=== PATIENT | female | born 1990 | race Caucasian/White ===

== ENCOUNTER 2020-11-29 04:27 | Inpatient (IN) ==
[2020-11-29] MEDS ORDERED: OXYTOCIN 30 UNITS/500 ML BAG IV PRN ×3 (05:09→12:12)
[2020-11-29] MEDS ORDERED: fentaNYL citrate 100 MCG/2 ML VIAL ONE (05:24)
[2020-11-29] MEDS ORDERED: BUPIVACAINE 0.25% 30 ML VIAL ONE (05:24)
[2020-11-29] MEDS ORDERED: ePHEDrine sulfate 50 MG/ML AMP ONE (05:24)
[2020-11-29] MEDS ORDERED: SODIUM CHLORIDE 0.9% INJ 10 ML VIAL ONE (05:24)
[2020-11-29] MEDS ORDERED: fentaNYL 2MCG/ML ROPIVACAINE 1.25MG/ML 100 ML BAG EPI ONE (05:25)
[2020-11-29] MEDS: LACTATED RINGER'S 1,000 ML IV PRN ×2 (05:25→06:48)
[2020-11-29 05:33] LABS: Hemoglobin 12.6 g/dL (12.0-16.0); Mean Corpuscular Hemoglobin 31.5 pg (25-34); Mean Platelet Volume 10.4 fL (7.4-10.4); Platelet Count 187 K/uL (130-400); RDW Coefficient of Variation 12.9 % (11.5-14.5); RDW Standard Deviation 42.3 fL (36.4-46.3); White Blood Count 12.55 K/uL (4.8-10.8)
--- NOTE | 2020-11-29 06:00 | Labor Progress Brief Note ---
Date of Service November 29, 2020 Subjective Reason For Note: Routine Evaluation Admit Note 29 F P0000 at 40.2 weeks admitted in active labor. GBS is negative. FHT Cat 1. Covid is negative. Cervix 4/100/-1/vertex. Will get epidural. Assessment & Plan Admission and Anticipated Discharge Date Admission Date: November 29, 2020 Results & Data ([facility] Vital Signs (Past 12 Hours) Vital Signs Temp Pulse Resp BP Pulse Ox 11/29/20 05:55 67 99 11/29/20 05:50 63 98 11/29/20 05:45 63 99 11/29/20 05:40 64 99 11/29/20 05:34 75 98 11/29/20 05:29 63 98 11/29/20 05:02 36.8 C 11/29/20 04:46 36.8 C 66 18 130/82 11/29/20 04:45 66 130/82
--- NOTE | 2020-11-29 06:16 | Anesthesiology Consultation ---
Date of Service November 29, 2020 Assessment & Plan Chart Review Chart Review: Acceptable Risk for Surgery, Patient NOT seen in Pre Admission Testing and Acceptable Risk for Labor Epidural Consults Requested none ASA ASA2 Proposed Anesthesia Anesthesia Type: Labor Epidural and CSE Risk / Benefits Reviewed With: PT / POA / Parent / Guardian, Accepts Plan and Informed Consent Obtained Additional Comments: covid test negative History Height/Weight Height: 5 ft 5 in Weight: 70 kg Allergies Allergy/AdvReac Type Severity Reaction Status Date / Time No Known Drug Allergies Allergy nkda Verified 11/29/20 05:47 Medications Home Medications Medication Instructions Recorded Confirmed Last Taken montelukast 10 mg tablet 10 mg PO DAILY 04/30/20 11/29/20 11/29/20 [id number] 1 tab PO DAILY 11/29/20 11/29/20 11/28/20 [] Active Medications Generic Name Dose Route Start Last Admin Trade Name Freq PRN Reason Stop Dose Admin Lactated Ringer's 1,000 mls @ 125 mls/hr 11/29/20 05:09 11/29/20 05:25 Lr IV 12/01/20 05:08 999 mls/hr .Q8H PRN Administration L&D Protocol Protocol NPO Date Last Intake of Fluids: 11/29/20 Time Last Intake of Fluids: 04:00 Date Last Intake of Solids: 11/28/20 Time Last Intake of Solids: 23:59 Past Medical History Medical History Asthma Exercise / Class Metabolic Activity II 4-5 Yardwork/Stairs/Walk up hill Past Surgical History Surgical History No pertinent past surgical history Past Anesthesia History No Hx of Anesthesia Complications and No Family Hx of Anesthesia Complications History of PONV No Hx of PONV and No Hx of Motion Sickness Social History Smoking Status: Never smoker Hx Alcohol Use: No Hx Substance Use: No Physical Exam Vital Signs Last Vital Signs Temp 36.8 C 11/29/20 05:02 Pulse 63 11/29/20 06:10 Resp 18 11/29/20 04:46 BP 130/82 11/29/20 04:46 Pulse Ox 99 11/29/20 06:10 Constitutional + obese ENMT Mouth: no dentition abnormality Thyromental Distance: < 3.5 Finger Breadths Mallampati Class: II Neck normal visual inspection and trachea midline; neck extension not limited Respiratory normal respiratory effort Auscultation: lungs clear to auscultation bilaterally Cardiovascular Rate/Rhythm: regular rate and regular rhythm Heart Sounds: no murmur Vessels: no carotid bruit Musculoskeletal Spine: lumbar spine normal to inspection; normal cervical ROM Neurologic moves all extremities Motor/Sensory: no sensory deficit Psychiatric Orientation: alert and oriented x 3 Testing Laboratory Results 11/29/20 05:23
[2020-11-29] MEDS ORDERED: fentaNYL 2MCG/ML ROPIVACAINE 1.25MG/ML 100 ML BAG EPI PRN (06:38)
[2020-11-29] MEDS ORDERED: diphenhydrAMINE 50 MG/ML VIAL IV PRN (06:38)
[2020-11-29] MEDS ORDERED: PROMETHAZINE HCL 25 MG in SODIUM CHLORIDE 0.9% 50 ML IV PRN (06:38)
[2020-11-29] MEDS ORDERED: NALOXONE HCL 0.4 MG/1 ML VIAL/CARP IV PRN (06:38)
[2020-11-29] MEDS ORDERED: NALOXONE HCL 1 MG in SODIUM CHLORIDE 0.9% 1000ML 1,000 ML IV PRN (06:38)
[2020-11-29] MEDS ORDERED: ONDANSETRON INJ 2 MG/ML 2 ML VIAL IV PRN (06:38)
[2020-11-29] MEDS ORDERED: ePHEDrine sulfate 50 MG/ML AMP IV PRN (06:38)
--- NOTE | 2020-11-29 07:33 | Obstetrical Progress Note ---
Date of Service November 29, 2020 Assessment & Plan Admission and Anticipated Discharge Date Admission Date: November 29, 2020 Subjective Patient is seen and examined. She is a 29-year-old G1, P0 at 40 weeks and 2 days of gestation admitted by Dr. Thomas this morning after spontaneous rupture of membranes and contractions. She has received epidural and comfortable now. I reviewed her medical history and confirmed with her. She has a history of asthma, allergies and has been on montelukast daily. She denies any other problems, she denies smoking, alcohol, drug use, history of STDs including herpes, chlamydia, gonorrhea. Her has been uncomplicated except she was measuring small and has seen [facility] for ultrasound and Doppler studies were normal and baby was measuring 2600 g 3 weeks ago. Vital signs stable afebrile, heart rate category 1, Contractions every 2-3 minutes, Vaginal exam, cervix is 9 cm dilated 90% effaced head is at +1 station. Patient does not have any pressure nor urge to push. We will continue to monitor and anticipate vaginal delivery. Results & Data ([facility]) Vital Signs (Past 12 Hours) Vital Signs Temp Pulse Resp BP Pulse Ox 11/29/20 07:29 76 114/75 11/29/20 07:26 83 106/72 11/29/20 07:25 76 99 11/29/20 07:23 81 115/71 11/29/20 07:20 86 117/69 99 11/29/20 07:17 80 111/68 11/29/20 07:15 72 98 11/29/20 07:14 66 100/61 11/29/20 07:11 63 109/59 L 11/29/20 07:10 68 98 11/29/20 07:08 74 113/71 11/29/20 07:05 72 103/68 98 11/29/20 07:02 90 101/65 11/29/20 07:00 36.6 C 71 16 98 11/29/20 06:59 71 18 94/57 L 11/29/20 06:56 74 97/58 L 11/29/20 06:55 75 98 11/29/20 06:53 66 101/60 11/29/20 06:50 78 98/58 L 98 11/29/20 06:47 67 102/55 L 11/29/20 06:45 68 98 11/29/20 06:44 70 105/64 11/29/20 06:41 69 18 104/65 11/29/20 06:40 70 97 11/29/20 06:38 69 18 110/69 11/29/20 06:35 68 117/75 98 11/29/20 06:32 70 118/72 11/29/20 06:30 70 100 11/29/20 06:29 75 18 119/68 11/29/20 06:25 69 98 11/29/20 06:20 68 99 11/29/20 06:15 61 98 11/29/20 06:10 63 99 11/29/20 06:05 78 98 11/29/20 06:00 76 99 11/29/20 05:55 67 99 11/29/20 05:50 63 98 11/29/20 05:45 63 99 11/29/20 05:40 64 99 11/29/20 05:34 75 98 11/29/20 05:29 63 98 11/29/20 05:02 36.8 C 11/29/20 04:46 36.8 C 66 18 130/82 11/29/20 04:45 66 130/82
[2020-11-29] MEDS ORDERED: MINERAL OIL 30 ML UDC ONE (07:45)
--- NOTE | 2020-11-29 10:16 | Obstetrical Progress Note ---
Date of Service November 29, 2020 Assessment & Plan Admission and Anticipated Discharge Date Admission Date: November 29, 2020 Subjective Patient felt pressure and desired to push Head at +3 FHR categ I Continue to monitor closely Results & Data ([facility]) Vital Signs (Past 12 Hours) Vital Signs Temp Pulse Resp BP Pulse Ox 11/29/20 10:12 71 125/57 L 11/29/20 10:10 75 97 11/29/20 10:09 107 H 191/91 H 92 11/29/20 10:06 67 136/65 11/29/20 10:05 66 99 11/29/20 10:03 79 91 11/29/20 10:02 73 125/82 11/29/20 10:00 69 20 98 11/29/20 09:59 67 120/74 11/29/20 09:57 86 135/88 11/29/20 09:56 84 92 11/29/20 09:55 79 99 11/29/20 09:53 94 H 128/82 11/29/20 09:50 74 122/75 99 11/29/20 09:47 70 125/77 11/29/20 09:45 74 145/66 H 99 11/29/20 09:42 69 113/59 L 11/29/20 09:40 72 98 11/29/20 09:38 64 117/67 11/29/20 09:35 61 120/69 99 11/29/20 09:33 78 114/80 11/29/20 09:31 36.7 C 11/29/20 09:30 66 124/76 99 11/29/20 09:26 77 117/72 11/29/20 09:25 71 98 11/29/20 09:23 70 117/69 11/29/20 09:20 64 124/69 98 11/29/20 09:17 73 122/66 11/29/20 09:15 81 117/56 L 98 11/29/20 09:10 71 99 11/29/20 09:08 65 116/74 11/29/20 09:05 68 115/72 98 11/29/20 09:02 64 115/73 11/29/20 09:00 62 18 98 11/29/20 08:59 77 122/69 11/29/20 08:56 71 117/69 06/03/21 08:55 66 98 06/09/16 08:53 71 114/71 06/03/21 08:50 62 121/77 98 06/03/21 08:48 64 119/77 06 08:45 71 98 06 08:44 68 117/69 06/03/21 08:41 67 116/67 06/03/21 08:40 64 99 06/03/21 08:39 66 128/74 06/03 08:35 71 117/66 99 06/03/ 08:30 82 20 98 06/03 08:29 63 120/76 06/09/16 08:26 65 126/77 06/03/ 08:25 73 99 06/03/ 08:23 69 131/71 0603/ 08:20 65 118/72 98 06/09/16 08:17 66 129/70 06// 08:15 79 113/66 98 06/03/ 08:10 69 100 06 08:09 64 132/81 11/29/20 08:05 73 121/72 100 06/09/16 08:02 86 127/82 06 08:00 85 16 123/86 98 /03/ 07:56 79 123/70 0603 07:55 76 98 0603 07:53 82 116/73 06/03/ 07:50 75 118/72 99 06/03/21 07:47 77 119/63 06/03/21 07:45 78 99 0603 07:44 76 127/63 06/03 07:41 66 119/73 0603 07:40 72 98 06/03 07:39 65 121/75 06/03/ 07:35 72 116/56 L 98 03/ 07:30 80 18 98 06/03/21 07:29 76 114/75 06/03/21 07:26 83 106/72 0603/21 07:25 76 99 06/03/21 07:23 81 115/71 06/03/21 07:20 86 117/69 99 06/03/21 07:17 80 111/68 06/03/21 07:15 72 98 06/03/ 07:14 66 100/61 06/03/ 07:11 63 109/59 L 11/29/20 07:10 68 98 11/29/20 07:08 74 113/71 11/29/20 07:05 72 103/68 98 11/29/20 07:02 90 101/65 11/29/20 07:00 36.6 C 71 16 98 11/29/20 06:59 71 18 94/57 L 11/29/20 06:56 74 97/58 L 11/29/20 06:55 75 98 11/29/20 06:53 66 101/60 11/29/20 06:50 78 98/58 L 98 11/29/20 06:47 67 102/55 L 11/29/20 06:45 68 98 11/29/20 06:44 70 105/64 11/29/20 06:41 69 18 104/65 11/29/20 06:40 70 97 11/29/20 06:38 69 18 110/69 11/29/20 06:35 68 117/75 98 11/29/20 06:32 70 118/72 11/29/20 06:30 70 100 11/29/20 06:29 75 18 119/68 11/29/20 06:25 69 98 11/29/20 06:20 68 99 11/29/20 06:15 61 98 11/29/20 06:10 63 99 11/29/20 06:05 78 98 11/29/20 06:00 76 99 11/29/20 05:55 67 99 11/29/20 05:50 63 98 11/29/20 05:45 63 99 11/29/20 05:40 64 99 11/29/20 05:34 75 98 11/29/20 05:29 63 98 11/29/20 05:02 36.8 C 11/29/20 04:46 36.8 C 66 18 130/82 11/29/20 04:45 66 130/82
[2020-11-29] MEDS ORDERED: HYDROCORTISONE ACETATE 25 MG SUPP PR PRN (12:12)
[2020-11-29] MEDS ORDERED: bisacodyL 10 MG SUPP PR PRN (12:12)
[2020-11-29] MEDS ORDERED: SUPERCREAM 0.870% 15 GM JAR EXT PRN (12:12)
[2020-11-29] MEDS ORDERED: ACETAMINOPHEN 325 MG TAB PO PRN (12:12)
[2020-11-29] MEDS ORDERED: BENZOCAINE 20% AER SPR 82.5 GM CAN EXT PRN (12:12)
--- NOTE | 2020-11-29 13:27 | Delivery Summary ---
DATE OF OPERATION: 11/29/2020 TIME: 11:32 a.m. DETAILS OF DELIVERY: The patient was found to be fully dilated and desired to push. She pushed for about 1 hour and 40 minutes and delivered the head without difficulty. Shoulders were delivered with minimal traction. Baby was handed to the mother where mouth and nose were suctioned. Cord was clamped and cut at 1 minute delay and cord blood was obtained. Vagina and perineum were checked for lacerations. There was a small second degree at the posterior fourchette, which was repaired with 2-0 Vicryl in a running locked fashion. Rectal exam was done and excellent sphincter tone was noted and no sutures were felt. Rest of the vagina and labia were intact. Placenta was found to be in the vagina, delivered spontaneous as intact and complete. Uterus was explored, found to be empty. Lower segment was cleared of all clots and debris. EBL was 200. Mom and baby tolerated the procedure well. Sponge, lap, needle count was correct x2. Baby was a viable female , Apgars 8/9, weight is 2836 gr. No complications happened and I was present during whole procedure. I attest to the content of the Intraoperative Record and any orders documented therein. Any exceptions are noted below. MTDD
--- NOTE | 2020-11-29 15:34 | Anesthesia Procedure Note ---
Date of Service November 29, 2020 Anesthesia Post Epidural Note Vital Signs Vital Signs: Temp Pulse Resp BP Pulse Ox 37.4 C 90 16 116/75 100 11/29/20 14:57 11/29/20 14:10 11/29/20 14:57 11/29/20 14:57 11/29/20 14:57 Notes Mental Status: alert / awake / arousable and participated in evaluation Nausea / Vomiting: adequately controlled Pain: adequately controlled Airway Patency, RR, SpO2: stable & adequate BP & HR: stable & adequate Hydration State: stable & adequate Neuraxial Anesthesia: was administered and sensory block is resolving Anesthetic Complications: no major complications apparent and Pt Satisfied with anesthetic care Epidural: Removed without complications and With tip intact
[2020-11-29] MEDS: IBUPROFEN 600 MG TAB PO PRN (18:14)
[2020-11-29] MEDS: DOCUSATE SODIUM 100 MG CAP PO SCH (21:03)
[2020-11-30] MEDS: IBUPROFEN 600 MG TAB PO PRN ×3 (02:33→20:39)
[2020-11-30 07:11] LABS: Hematocrit (blood only) 33.4 % (37-47); Hemoglobin 11.6 g/dL (12.0-16.0); Mean Corpuscular Hemoglobin 30.9 pg (25-34); Mean Corpuscular Hgb Conc 34.7 g/dL (32-36); Mean Corpuscular Volume 89.1 fL (80-100); Platelet Count 174 K/uL (130-400); RDW Coefficient of Variation 13.2 % (11.5-14.5); RDW Standard Deviation 43.1 fL (36.4-46.3); Red Blood Count 3.75 M/uL (4.2-5.4); White Blood Count 14.19 K/uL (4.8-10.8)
--- NOTE | 2020-11-30 08:12 | Obstetrical Progress Note ---
Date of Service November 30, 2020 Subjective Ambulation: ambulating normally Voiding: no voiding problems Passing Gas:: Yes Diet Tolerance:: regular diet Lochia:: Small Feeding Type:: breast feeding doing well Physical Exam abdomen soft and non-tender fundus firm no edema neg Colt's tent d/c in AM Results & Data ([facility]) Vital Signs (Past 12 Hours) Vital Signs Temp Pulse Resp BP Pulse Ox 11/30/20 05:00 36.6 C 82 17 112/67 98 11/30/20 00:30 36.6 C 83 16 109/66 98 Laboratory Results Laboratory Results - last 72 hr 11/29/20 11/29/20 11/29/20 05:15 05:15 05:23 WBC 12.55 H RBC 4.00 L Hgb 12.6 Hct 36.0 L MCV 90.0 MCH 31.5 MCHC 35.0 RDW Std Deviation 42.3 RDW Coeff of Augusto 12.9 Plt Count 187 MPV 10.4 COVID-19 Eval Order Covid19 IDNow atMTXC SARS-CoV-2, RNA, NAAT NEGATIVE 11/30/20 06:15 WBC 14.19 H RBC 3.75 L Hgb 11.6 L Hct 33.4 L MCV 89.1 MCH 30.9 MCHC 34.7 RDW Std Deviation 43.1 RDW Coeff of Augusto 13.2 Plt Count 174 MPV 11.0 H COVID-19 Eval Order SARS-CoV-2, RNA, NAAT
[2020-11-30] MEDS: PRENATAL VITAMIN 1 TAB PO SCH (08:40)
[2020-11-30] MEDS: DOCUSATE SODIUM 100 MG CAP PO SCH (08:40)
[2020-11-30] MEDS: FERROUS SULFATE 325 MG TAB PO SCH (08:41)
[2020-11-30] MEDS ORDERED: DIPHTHERIA/TETANUS/PERTUSSIS 0.5 ML SYR/VIAL IM ONE (09:00)
[2020-11-30] MEDS ORDERED: MEASLES, MUMPS & RUBELLA VIRUS VIAL SQ ONE (09:00)
[2020-11-30] MEDS ORDERED: bisacodyL 5 MG TABEC PO SCH (20:00)
[2020-11-30] MEDS: DOCUSATE SODIUM SYRUP 100 MG/10 ML UDC PO SCH (20:39)
[2020-12-01] MEDS: IBUPROFEN 600 MG TAB PO PRN ×3 (03:47→15:27)
[2020-12-01 06:24] LABS: Hematocrit (blood only) 33.4 % (37-47); Hemoglobin 11.6 g/dL (12.0-16.0)
[2020-12-01] MEDS: PRENATAL VITAMIN 1 TAB PO SCH (08:56)
[2020-12-01] MEDS: FERROUS SULFATE 325 MG TAB PO SCH (08:56)
[2020-12-01] MEDS: DOCUSATE SODIUM SYRUP 100 MG/10 ML UDC PO SCH (08:57)
--- NOTE | 2020-12-01 11:56 | Obstetrical Progress Note ---
Date of Service December 01, 2020 Assessment & Plan (1) Normal course: PPD #2 pt doing well disch home Subjective Ambulation: ambulating normally Voiding: no voiding problems Passing Gas:: Yes Diet Tolerance:: regular diet Lochia:: Small Feeding Type:: breast feeding Review of Systems All systems reviewed & are unremarkable except as noted in HPI & below Physical Exam Constitutional WD/WN, vitals as above well developed and well nourished Eyes PERRL, conjunctivae normal, anicteric sclerae Neck trachea midline, no thyromegaly Respiratory normal respiratory effort, lungs clear to auscultation Auscultation: no crackles, no rales and no wheezes Cardiovascular RRR, no murmur, no edema Gastrointestinal (Abdomen) normal bowel sounds, soft, nontender, no hepatosplenomegaly Uterus is below umbilicus Musculoskeletal no cyanosis or clubbing, extremities motor strength 5/5 Skin no rashes, warm and dry Neurologic patellar DTR's 2+ bilat, sensation intact Psychiatric A+Ox3, euthymic affect Genitourinary normal external appearance Results & Data ([facility]) Vital Signs (Past 12 Hours) Vital Signs Temp Pulse Resp BP Pulse Ox 12/01/20 09:14 36.5 C 79 20 134/83 99 12/01/20 00:35 36.5 C 78 16 111/73
--- NOTE | 2020-12-01 15:54 | Progress Note ---
Date of Service December 01, 2020 Assessment & Plan Admission and Anticipated Discharge Date Admission Date: November 29, 2020 Subjective Pt informed nurse at time of discharge, she has rt calf pain. I was called into room to see pt she denies SOB,tachypnea or chest heaviness PE; both extremities appear edematous. no erythema in either calves. no masses palpated in popliteal region Rt venous Doppler ordered Results & Data ([facility]) Vital Signs (Past 12 Hours) Vital Signs Temp Pulse Resp BP Pulse Ox 12/01/20 11:59 36.5 C 79 20 134/83 99 12/01/20 09:14 36.5 C 79 20 134/83 99
--- NOTE | 2020-12-01 17:51 | Ultrasound Report ---
RIGHT LOWER EXTREMITY VENOUS DOPPLER HISTORY: rt calf pain COMPARISON STUDY: None. FINDINGS: There is normal compressibility, flow, and augmentation within the right lower extremity de ep venous system. IMPRESSION: No DVT within the right lower extremity ACT 112: Negative or not required by law. Electronically signed by: Roberto Dos Santos M.D. 12/01/2020 5:49 PM
== END 2020-12-01 19:50 | disposition home or self-care (01) | DRG 807 ==
LOC: OPB 04:27 → 4S1 04:31 → 4S2 14:41

== ENCOUNTER 2022-09-25 12:42 | Inpatient (IN) ==
[2022-09-25] MEDS ORDERED: LIDOCAINE 1% LOCAL 20 ML VIAL INFIL PRN (13:05)
[2022-09-25] MEDS ORDERED: OXYTOCIN 30 UNITS/500 ML BAG IV PRN ×3 (13:05→18:45)
--- NOTE | 2022-09-25 13:45 | History & Physical Report ---
Date of Service September 25, 2022 Assessment & Plan (1) Elective induction of labor planned: Plan: 31-year-old -0-0-1 at 40 weeks and 1 day gestation, induction of labor for postdates, Vital signs stable afebrile, No medical problems, heart rate reassuring, GBS negative, Cervix favorable, Plan to admit, monitor, labs, oxytocin per protocol, epidural when patient desires, AROM, All questions were answered, Anticipate . (2) Post-term , 40-42 weeks of gestation: Admission and Anticipated Discharge Date Admission Date: September 25, 2022 History of Present Illness Primary Care Provider: Alexandra Valdez DO Patient is a 31-year-old -0-0-1 at 40 weeks and 1 day gestation who is here for induction of labor for postdates. She has no complaints. She denies contractions, leakage of fluid, vaginal bleeding. She reports good movements. She was here on September 21 when she was having contractions and her cervix was 3 cm dilated and has not changed. Then the contractions spaced out and stopped. Her has been uncomplicated. Denies any medical problems. GBS negative. Allergies Allergy/AdvReac Type Severity Reaction Status Date / Time No Known Drug Allergies Allergy nkda Verified 09/25/22 13:28 Home Medications Medication Instructions Recorded Confirmed Type prenat.vits,cisco,hwg-ltrv-mliks 1 tab PO DAILY 04/16/22 09/25/22 History Patient History Medical History Asthma Surgical History History of knee surgery No pertinent past surgical history Family History Other No known health problems Social History Smoking Status: Never smoker Hx Alcohol Use: No Hx Substance Use: No Preferred Language: Latvian Communication Ability: Effective Endorsement Clerk Required: No Beliefs That Will Affect Care: None marital status: Current Living Situation: Spouse Current Living Situation Comment: and child Other Information That Helps Us Care for You: No Feels Safe at Home: Yes Safety Concerns: Feels Safe At This Time Assistive Devices: None OB History Full-term on November 2020, no complications. [employer] History No history of STDs. No history of chlamydia, gonorrhea, herpes. Review of Systems as per Subjective / HPI Physical Exam Constitutional: WD/WN, vitals as above well developed, well nourished and comfortable Gastrointestinal (Abdomen): normal bowel sounds, soft, nontender, no hepatosplenomegaly (Gravid) Genitourinary: normal external appearance Manual OB Exam: + cervical dilation 3 cm, + cervical effacement 60% and + station -2 OB Exam Monitor Tracing: + external uterine monitor used and + category I Results & Data Vital Signs (Past 12 Hours) Vital Signs Temp Pulse Resp BP 09/25/22 12:56 36.7 C 82 20 118/59 L
[2022-09-25] MEDS: LACTATED RINGER'S 1,000 ML IV PRN ×2 (13:59→17:30)
[2022-09-25 14:03] LABS: Hematocrit (blood only) 37.1 % (37.0-47.0); Hemoglobin 12.7 g/dl (12.0-16.0); Mean Corpuscular Hemoglobin 30.2 pg (25.0-34.0); Mean Corpuscular Hgb Conc 34.2 g/dL (32.0-36.0); Mean Corpuscular Volume 88.3 fL (80.0-100.0); Mean Platelet Volume 10.4 fL (9.4-12.4); Platelet Count 193 K/uL (130-400); RDW Coefficient of Variation 12.8 % (11.5-14.5); RDW Standard Deviation 40.9 fL (36.4-46.3); White Blood Count 8.03 K/ul (4.8-10.8)
[2022-09-25] MEDS ORDERED: LIDOCAINE 2%/EPINEPHRINE 1:200,000 20 ML PF ONE (16:56)
[2022-09-25] MEDS ORDERED: SODIUM CHLORIDE 0.9% PF INJ 10 ML VIAL ONE (16:56)
[2022-09-25] MEDS ORDERED: BUPIVACAINE 0.25% PF 30 ML VIAL ONE (16:56)
[2022-09-25] MEDS ORDERED: fentaNYL citrate PF 100 MCG/2 ML VIAL ONE (16:56)
[2022-09-25] MEDS ORDERED: ePHEDrine sulfate 50 MG/ML AMP ONE (16:56)
[2022-09-25] MEDS ORDERED: fentaNYL 2MCG/ML ROPIVACAINE 1.25MG/ML 100 ML BAG EPI ONE (16:57)
--- NOTE | 2022-09-25 17:45 | Anesthesiology Consultation ---
Date of Service September 25, 2022 Assessment & Plan Chart Review Chart Review: Acceptable Risk for Labor Epidural Consults Requested none History Height/Weight Height: 5 ft 5 in Weight: 78.471 kg Allergies Allergy/AdvReac Type Severity Reaction Status Date / Time nickel Allergy Redness of Verified 09/25/22 15:52 Skin No Known Drug Allergies Allergy nkda Verified 09/25/22 13:28 Medications Home Medications Medication Instructions Recorded Confirmed Last Taken prenat.vits,cisco,xih-majg-pqsqx 1 tab PO DAILY 04/16/22 09/25/22 09/24/22 07:00 Active Medications Generic Name Dose Route Start Last Admin Trade Name Freq PRN Reason Stop Dose Admin Lactated Ringer's 1,000 mls @ 150 mls/hr 09/25/22 13:05 09/25/22 17:30 Lr IV 09/27/22 13:04 999 mls/hr .[id number] PRN Administration L&D Protocol Protocol Oxytocin 30 units in 500 mls @ 10 mls/hr 09/25/22 13:06 09/25/22 16:30 Pitocin IV 10/25/22 13:05 0.6 units/hr .Q24H PRN 10 mls/hr Labor Induction/Augmentation Titration Protocol 0.6 UNITS/HR Past Medical History Medical History Asthma Past Family History Family History Other No known health problems Past Surgical History Surgical History History of knee surgery No pertinent past surgical history Social History Smoking Status: Never smoker Hx Alcohol Use: No Hx Substance Use: No Physical Exam Vital Signs Last Vital Signs Temp 36.7 C 09/25/22 15:03 Pulse 74 09/25/22 17:44 Resp 18 09/25/22 17:43 BP 112/66 09/25/22 17:44 Pulse Ox 100 09/25/22 17:43 Testing Laboratory Results 09/25/22 13:44
[2022-09-25] MEDS ORDERED: fentaNYL 2MCG/ML ROPIVACAINE 1.25MG/ML 100 ML BAG EPI PRN (18:01)
[2022-09-25] MEDS ORDERED: diphenhydrAMINE 50 MG/ML VIAL IV PRN (18:01)
[2022-09-25] MEDS ORDERED: NALOXONE HCL 1 MG in SODIUM CHLORIDE 0.9% 1000ML 1,000 ML IV PRN (18:01)
[2022-09-25] MEDS ORDERED: ePHEDrine sulfate 50 MG/ML AMP IV PRN (18:01)
[2022-09-25] MEDS ORDERED: NALBUPHINE HCL INJ 10 MG/ML AMP IV PRN (18:01)
[2022-09-25] MEDS ORDERED: NALOXONE HCL 0.4 MG/1 ML VIAL/CARP IV PRN (18:01)
--- NOTE | 2022-09-25 18:04 | Obstetrical Progress Note ---
Date of Service September 25, 2022 Assessment & Plan Admission and Anticipated Discharge Date Admission Date: September 25, 2022 Subjective Patient has received epidural and comfortable now VSS Afebrile FHR had been categ I, started to have mild early decels with contractions VE: 6/ 80%/ -1, bulging bag, AROM, clear fluid Continue to monitor closely Anticipate Results & Data Vital Signs (Past 12 Hours) Vital Signs Temp Pulse Resp BP Pulse Ox 09/25/22 17:58 100 09/25/22 17:58 86 09/25/22 17:58 140/94 09/25/22 17:53 100 09/25/22 17:53 72 09/25/22 17:52 77 09/25/22 17:52 107/57 L 09/25/22 17:51 20 09/25/22 17:51 36.7 C 20 09/25/22 17:50 75 09/25/22 17:50 108/60 09/25/22 17:48 100 09/25/22 17:48 73 09/25/22 17:48 109/58 L 09/25/22 17:46 73 09/25/22 17:46 109/57 L 09/25/22 17:43 100 09/25/22 17:43 78 09/25/22 17:44 74 09/25/22 17:44 112/66 09/25/22 17:43 18 09/25/22 17:43 18 09/25/22 17:42 86 09/25/22 17:42 113/62 09/25/22 17:40 75 09/25/22 17:40 110/64 09/25/22 17:38 100 09/25/22 17:38 73 09/25/22 17:39 20 09/25/22 17:39 20 09/25/22 17:38 65 09/25/22 17:38 114/65 09/25/22 17:36 68 09/25/22 17:36 121/65 09/25/22 17:33 100 09/25/22 17:33 79 09/25/22 17:34 78 09/25/22 17:34 129/64 09/25/22 17:28 99 09/25/22 17:28 73 09/25/22 17:23 99 09/25/22 17:23 76 09/25/22 17:18 100 09/25/22 17:18 71 09/25/22 17:13 100 09/25/22 17:13 72 09/25/22 17:08 100 09/25/22 17:08 71 09/25/22 17:07 69 09/25/22 17:07 121/74 09/25/22 16:02 77 09/25/22 16:02 118/77 09/25/22 15:03 20 09/25/22 15:03 36.7 C 20 09/25/22 15:03 71 09/25/22 15:03 123/72 09/25/22 14:02 82 09/25/22 14:02 104/66 09/25/22 12:56 36.7 C 82 20 118/59 L
[2022-09-25] MEDS ORDERED: MINERAL OIL 30 ML UDC ONE (18:13)
[2022-09-25] MEDS ORDERED: oxyCODONE/ACETAMINOPHEN 5mg/325mg TAB PO PRN (18:45)
[2022-09-25] MEDS ORDERED: ACETAMINOPHEN 325 MG TAB PO PRN (18:45)
[2022-09-25] MEDS ORDERED: HYDROCORTISONE ACETATE 25 MG SUPP PR PRN (18:45)
[2022-09-25] MEDS ORDERED: DIPHTHERIA/TETANUS/PERTUSSIS 0.5mL SYR/VIAL (Age 7+yrs) IM ONE (18:45)
[2022-09-25] MEDS ORDERED: bisacodyL 10 MG SUPP PR PRN (18:45)
[2022-09-25] MEDS ORDERED: MEASLES, MUMPS & RUBELLA VIRUS VIAL SQ ONE (18:45)
[2022-09-25] MEDS ORDERED: BENZOCAINE 20% AER SPR 82.5 GM CAN EXT PRN (18:45)
--- NOTE | 2022-09-25 18:49 | Delivery Summary ---
Vaginal Delivery Summary Date of Service September 25, 2022 Vaginal Delivery Summary Patient was found to be fluid dilated and desired to push. She pushed for about 15 minutes and delivered the head without difficulty. Anterior/ Left shoulder was delivered with left arm, which was presenting at the same time, with minimal traction and then the posterior shoulder without difficulty. The baby was handed off to the mother by mouth and nose were suctioned, the cord was clamped times and cut. Then the vagina and perineum were checked for lacerations. There was a very small first-degree skin laceration at the posterior fourchette which is about 1 cm and oozing. It was repaired with 3-0 Vicryl on SH needle with [id number] 8 stitches x2. It was hemostatic. The rest of the vagina, bilateral labia and perineum were intact. The placenta was found to be in the vagina, delivered spontaneously as intact and complete. Uterus was explored and found to be empty, the lower segment was cleared of all clots and debris's, fundus was firm and EBL was 200 ml. The mom and baby tolerated procedure well. There was a viable male infant, Apgars 8/9 and weight is pending. No complications happened and I was present during whole procedure. At the end of the procedure the sponge needle instrument count was correct x2.
--- NOTE | 2022-09-25 19:08 | Anesthesiology Progress Note ---
Date of Service September 25, 2022 Anesthesia Post Procedure Vital Signs Vital Signs: Temp Pulse Resp BP Pulse Ox 09/25/22 18:48 20 09/25/22 19:02 60 09/25/22 19:02 107/56 L 09/25/22 18:48 66 09/25/22 18:48 116/59 L 09/25/22 18:47 66 09/25/22 18:47 191/72 H 09/25/22 18:43 100 09/25/22 18:43 71 09/25/22 18:38 100 09/25/22 18:38 67 09/25/22 18:38 110/65 09/25/22 18:33 100 09/25/22 18:33 71 09/25/22 18:28 100 09/25/22 18:28 80 09/25/22 18:28 89 L 09/25/22 18:28 72 09/25/22 18:23 100 09/25/22 18:23 66 09/25/22 18:23 110/64 09/25/22 18:19 88 L 09/25/22 18:19 69 09/25/22 18:18 100 09/25/22 18:18 63 09/25/22 18:18 113/64 09/25/22 18:15 20 09/25/22 18:15 20 09/25/22 18:13 100 09/25/22 18:13 69 09/25/22 18:13 73 09/25/22 18:13 120/64 09/25/22 18:08 100 09/25/22 18:08 77 09/25/22 18:08 83 09/25/22 18:08 110/78 09/25/22 18:03 100 09/25/22 18:03 69 09/25/22 18:03 80 09/25/22 18:03 112/80 09/25/22 17:58 100 09/25/22 17:58 86 09/25/22 17:58 140/94 09/25/22 17:53 100 09/25/22 17:53 72 09/25/22 17:52 77 09/25/22 17:52 107/57 L 09/25/22 17:51 20 09/25/22 17:51 36.7 C 20 09/25/22 17:50 75 09/25/22 17:50 108/60 09/25/22 17:48 100 09/25/22 17:48 73 09/25/22 17:48 109/58 L 09/25/22 17:46 73 09/25/22 17:46 109/57 L 09/25/22 17:43 100 09/25/22 17:43 78 09/25/22 17:44 74 09/25/22 17:44 112/66 09/25/22 17:43 18 09/25/22 17:43 18 09/25/22 17:42 86 09/25/22 17:42 113/62 09/25/22 17:40 75 09/25/22 17:40 110/64 09/25/22 17:38 100 09/25/22 17:38 73 09/25/22 17:39 20 09/25/22 17:39 20 09/25/22 17:38 65 09/25/22 17:38 114/65 09/25/22 17:36 68 09/25/22 17:36 121/65 09/25/22 17:33 100 09/25/22 17:33 79 09/25/22 17:34 78 09/25/22 17:34 129/64 09/25/22 17:28 99 09/25/22 17:28 73 09/25/22 17:23 99 09/25/22 17:23 76 09/25/22 17:18 100 09/25/22 17:18 71 09/25/22 17:13 100 09/25/22 17:13 72 09/25/22 17:08 100 09/25/22 17:08 71 09/25/22 17:07 69 09/25/22 17:07 121/74 09/25/22 16:02 77 09/25/22 16:02 118/77 09/25/22 15:03 20 09/25/22 15:03 36.7 C 20 09/25/22 15:03 71 09/25/22 15:03 123/72 09/25/22 14:02 82 09/25/22 14:02 104/66 09/25/22 12:56 36.7 C 82 20 118/59 L Pain Intensity Bilateral Abdomen: Pain Intensity: 0 Transfer of Care Handoff Completed per policy Notes Mental Status: alert / awake / arousable and participated in evaluation Patient Amnestic to Procedure: Yes Nausea / Vomiting: adequately controlled Pain: adequately controlled Airway Patency, RR, SpO2: stable & adequate BP & HR: stable & adequate Hydration State: stable & adequate Anesthetic Complications: no major complications apparent
[2022-09-25] MEDS ORDERED: DOCUSATE SODIUM 100 MG CAP PO SCH (21:00)
[2022-09-26] MEDS: IBUPROFEN 600 MG TAB PO PRN ×3 (04:25→17:31)
[2022-09-26 07:34] LABS: Hemoglobin 12.3 g/dl (12.0-16.0); Mean Corpuscular Hemoglobin 30.4 pg (25.0-34.0); Mean Corpuscular Hgb Conc 35.1 g/dL (32.0-36.0); Mean Corpuscular Volume 86.4 fL (80.0-100.0); Mean Platelet Volume 10.4 fL (9.4-12.4); Platelet Count 197 K/uL (130-400); RDW Coefficient of Variation 12.6 % (11.5-14.5); RDW Standard Deviation 39.8 fL (36.4-46.3); Red Blood Count 4.05 M/uL (4.20-5.40); White Blood Count 15.04 K/ul (4.8-10.8)
[2022-09-26] MEDS: FERROUS SULFATE 325 MG TAB PO SCH (09:32)
[2022-09-26] MEDS: PRENATAL VITAMIN 1 TAB PO SCH (09:33)
[2022-09-26] MEDS: DOCUSATE SODIUM SYRUP 100 MG/10 ML UDC PO SCH ×2 (09:34→20:09)
--- NOTE | 2022-09-26 10:29 | Obstetrical Progress Note ---
Date of Service September 26, 2022 Subjective Ambulation: ambulating normally Voiding: no voiding problems Passing Gas:: Yes Diet Tolerance:: regular diet Lochia:: Small Feeding Type:: breast feeding Current Pain Level(1-10): 0 doing well Physical Exam Constitutional WD/WN, vitals as above Gastrointestinal (Abdomen) fundus firm below U Musculoskeletal Extremities: extremities normal to inspection Skin no rashes, warm and dry Neurologic patellar DTR's 2+ bilat, sensation intact Psychiatric A+Ox3, euthymic affect Results & Data Vital Signs (Past 12 Hours) Vital Signs Temp Pulse Resp BP Pulse Ox O2 Del Method 09/26/22 03:11 36.7 C 76 16 124/81 93 Room Air 09/25/22 23:39 36.2 C L 83 18 104/67 98 Room Air Laboratory Results 09/25/22 09/25/22 09/26/22 13:44 Unknown 07:09 WBC 8.03 15.04 H RBC 4.20 4.05 L Hgb 12.7 12.3 Hct 37.1 35.0 L MCV 88.3 86.4 MCH 30.2 30.4 MCHC 34.2 35.1 RDW Std Deviation 40.9 39.8 RDW Coeff of Augusto 12.8 12.6 Plt Count 193 197 MPV 10.4 10.4 SARS-CoV-2, RNA, NAAT NEGATIVE
[2022-09-26] MEDS ORDERED: bisacodyL 5 MG TABEC PO SCH (20:00)
[2022-09-27] MEDS: IBUPROFEN 600 MG TAB PO PRN ×2 (02:43→07:40)
[2022-09-27 06:57] LABS: Basophils # (auto) 0.03 K/uL (0-0.2); Basophils % (auto) 0.2 %; Eosinophils # (auto) 0.15 K/uL (0-0.50); Eosinophils % (auto) 1.2 %; Hematocrit (blood only) 33.2 % (37.0-47.0); Hemoglobin 11.4 g/dl (12.0-16.0); Immature Granulocytes # (auto) 0.11 K/uL (0.01-0.20); Immature Granulocytes % (auto) 0.9 %; Lymphocytes # (auto) 2.77 K/uL (1.2-3.4); Lymphocytes % (auto) 22.4 %; Mean Corpuscular Hemoglobin 30.1 pg (25.0-34.0); Mean Corpuscular Hgb Conc 34.3 g/dL (32.0-36.0); Mean Corpuscular Volume 87.6 fL (80.0-100.0); Mean Platelet Volume 10.4 fL (9.4-12.4); Monocytes # (auto) 0.77 K/uL (0.11-0.59); Monocytes % (auto) 6.2 %; Neutrophils # (auto) 8.54 K/uL (1.40-6.50); Neutrophils % (auto) 69.1 %; Platelet Count 183 K/uL (130-400); RDW Coefficient of Variation 12.8 % (11.5-14.5); RDW Standard Deviation 40.9 fL (36.4-46.3); Red Blood Count 3.79 M/uL (4.20-5.40); White Blood Count 12.37 K/ul (4.8-10.8)
[2022-09-27] MEDS: FERROUS SULFATE 325 MG TAB PO SCH (08:30)
[2022-09-27] MEDS: PRENATAL VITAMIN 1 TAB PO SCH (08:30)
[2022-09-27] MEDS: DOCUSATE SODIUM SYRUP 100 MG/10 ML UDC PO SCH (08:30)
--- NOTE | 2022-09-27 08:35 | Obstetrical Progress Note ---
Date of Service September 27, 2022 Assessment & Plan Admission and Anticipated Discharge Date Admission Date: September 25, 2022 Subjective Patient is seen and examined. She feels well, no complaints. Ambulating without dizziness Voiding without difficulty Tolerating regular diet with out N&V Bleeding is minimal No fever/ chills/ CP/ SOB/ N&V/ Leg pain Breast feeding without problems Lab Results 09/25/22 09/25/22 09/26/22 Range/Units 13:44 Unknown 07:09 WBC 8.03 15.04 H (4.8-10.8) K/ul RBC 4.20 4.05 L (4.20-5.40) M/uL Hgb 12.7 12.3 (12.0-16.0) g/dl Hct 37.1 35.0 L (37.0-47.0) % MCV 88.3 86.4 (80.0-100.0) fL MCH 30.2 30.4 (25.0-34.0) pg MCHC 34.2 35.1 (32.0-36.0) g/dL RDW Std Deviation 40.9 39.8 (36.4-46.3) fL RDW Coeff of Augusto 12.8 12.6 (11.5-14.5) % Plt Count 193 197 (130-400) K/uL MPV 10.4 10.4 (9.4-12.4) fL Immature Gran % (Auto) % Neut % (Auto) % Lymph % (Auto) % Caldwell % (Auto) % Eos % (Auto) % Baso % (Auto) % Neut # (Auto) (1.40-6.50) K/uL Lymph # (Auto) (1.2-3.4) K/uL Caldwell # (Auto) (0.11-0.59) K/uL Eos # (Auto) (0-0.50) K/uL Baso # (Auto) (0-0.2) K/uL Immature Gran # (Auto) (0.01-0.20) K/uL SARS-CoV-2, RNA, NAAT NEGATIVE (NEGATIVE) 09/27/22 Range/Units 06:30 WBC 12.37 H (4.8-10.8) K/ul RBC 3.79 L (4.20-5.40) M/uL Hgb 11.4 L (12.0-16.0) g/dl Hct 33.2 L (37.0-47.0) % MCV 87.6 (80.0-100.0) fL MCH 30.1 (25.0-34.0) pg MCHC 34.3 (32.0-36.0) g/dL RDW Std Deviation 40.9 (36.4-46.3) fL RDW Coeff of Augusto 12.8 (11.5-14.5) % Plt Count 183 (130-400) K/uL MPV 10.4 (9.4-12.4) fL Immature Gran % (Auto) 0.9 % Neut % (Auto) 69.1 % Lymph % (Auto) 22.4 % Caldwell % (Auto) 6.2 % Eos % (Auto) 1.2 % Baso % (Auto) 0.2 % Neut # (Auto) 8.54 H (1.40-6.50) K/uL Lymph # (Auto) 2.77 (1.2-3.4) K/uL Caldwell # (Auto) 0.77 H (0.11-0.59) K/uL Eos # (Auto) 0.15 (0-0.50) K/uL Baso # (Auto) 0.03 (0-0.2) K/uL Immature Gran # (Auto) 0.11 (0.01-0.20) K/uL SARS-CoV-2, RNA, NAAT (NEGATIVE) PE: General: Alert, orientedx3, NAD Abd: soft, NT, fundus firm, below Umbilicus Perineum intact, Lochia rubra minimal Ext; NT, no edema AP: 31 yo s/p , ppd# 2 VSS Afebrile doing well Continue routine care All questions were answered Discussed when to call. D/C home , f/u in office Results & Data Vital Signs (Past 12 Hours) Vital Signs Temp Pulse Resp BP Pulse Ox O2 Del Method 09/27/22 07:50 36.8 C 64 16 112/74 Room Air 09/26/22 23:30 36.3 C L 83 18 100/70 98 Room Air
== END 2022-09-27 13:50 | disposition home or self-care (01) | DRG 807 ==
LOC: 4S1 12:42 → 4E2 21:15

== ENCOUNTER 2025-04-16 08:23 | Observation (INO) ==
--- NOTE | 2025-04-16 08:49 | Emergency Department Note ---
Impression & Plan Sinusitis, Headache, Fever ED Provider Note NAME: OLGA FUENTES AGE: 34 SEX: F : 1990 ARRIVES VIA: Walk-In INFORMANT: Patient ED PROVIDER(S): Jamie Nam DO CHIEF COMPLAINT: Fever, myalgias and arthralgias HPI: Patient is a 34-year-old female with a past medical history of chronic sinusitis who follows with Dr. Mcmanus who had surgery performed in early February. 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 She was placed on Omnicef for 7 days and then just started Levaquin as she notes she still has had yellow purulent drainage from her sinuses when she blows her nose. She notes she has had a cough and a sore throat for the past 3 days. Admits to a fever of 100.8 today. She has been taking Tylenol. Denies any chest pain or shortness of breath. No belly pain. She notes that she always has a little bit of pain in her posterior of her neck where she has noticed some swelling that has been there for some time. She notes she has had no redness drainage or discharge. ADDITIONAL HISTORY OBTAINED: Per HPI Chronic Medical/Social Conditions Affecting Care: Per HPI PAST MEDICAL HISTORY:See Below PAST SURGICAL HISTORY:See Below FAMILY HISTORY:See Below SOCIAL HISTORY:See Below HOME MEDICATIONS:See Below ALLERGIES:See Below VITALS:See Below PHYSICAL EXAMINATION: GENERAL: Sitting up in bed, alert, well appearing, well nourished, no distress, non-toxic EYE EXAM: normal conjunctiva. PERRL and EOM's grossly intact. OROPHARYNX: Erythema in the posterior pharynx with mild exudates bilaterally, lips, buccal mucosa, and tongue normal and mucous membranes are moist EARS: TM clear NECK: supple, no nuchal rigidity, no adenopathy, non-tender LUNGS: Clear to auscultation. Normal chest wall mechanics HEART: no murmurs, S1 normal and S2 normal ABDOMEN: abdomen soft, non-tender, normo-active bowel sounds, no masses, no rebound or guarding. UPPER EXTREMITIES: upper extremities are grossly normal. LOWER EXTREMITIES: No pitting edema. NEURO EXAM: Normal sensorium, cranial nerves II-XII grossly intact, normal speech, no gross weakness of arms, no gross weakness of legs. MEDICAL DECISION MAKING: Patient is a 34-year-old female who presents ER for above-stated complaint with a history of being immunocompromise. IV was established and blood work was obtained. Labs show no significant leukocytosis or anemia. BMP with mild hypokalemia 3.4. UA was clean without white cells to suggest infection. Viral panel was negative. CT of the sinuses shows significant sinus disease. Considered meningitis and discussed the risk and benefits I performed an LP at bedside. This was discussed with ENT. They agreed with admission. External records were reviewed and she did grew out Neisseria meningitis. Patient was given IV Rocephin and IV vancomycin here. Only 2 white cells and 240 red cells. It was a traumatic tap. Patient was ordered to Decadron per the request of ENT and discussed with the hospitalist for further evaluation management treatment. Meningitis PCR was pending upon admission. She was given Toradol for the headache as well as Tylenol per her request. She was also given IV fluids. Consults/Care Managements Discussions: Per [facility] Triage Nursing notes reviewed. Limited review of prior medical records performed Vital Signs: reviewed and remarkable for tachy Differential diagnosis: Differential diagnosis includes etiologies such as sepsis, UTI, pneumonia, metabolic, electrolyte abnormalities, cardiac sources, intracerebral event, toxicologic, neurological, as well as others were entertained. ER treatment provided: See below Diagnostics interpreted by me include EKG and cardiac monitoring as listed below: -Cardiac Monitoring: An order was placed for continuous cardiac monitoring. The monitor shows a rate of 110 with sinus rhythm. -ECG: Sinus rhythm rate of 113 Normal axis No PVCs QTc 441 -Laboratory studies:Interpreted by me as stated above in [facility] and shown below. Imaging studies: Xrays: As interpreted by me: Portable AP upright 1 view the chest shows no focal M-Trate CTs show: CT of the head and sinuses as described above Procedures:EM PROCEDURE NOTE - Lumbar Puncture PRIOR TO PROCEDURE: The patient was evaluated prior to the procedure. The patient was identified and the procedure verified as lumbar puncture. A Time Out was held and the following information confirmed. Verify Correct Patient: Yes Verify Correct Site: Yes Verify Correct Procedure: Yes Verify Correct Position: Yes Indication: Headache, fever and neck pain Discussion was held with the [patient] concerning lumbar puncture. The risks and benefits were explained with possible risks to include local back pain, headache, bleeding, infection, neurological sequelea (herniation and/or paralysis), and tract formation/subarachnoid epidermal cyst. The [patient] freely [gave verbal consent]. PROCEDURE NOTE: Patient was placed in the [sitting position] with hips, knees and neck flexed. Landmarks identified. Patient prepped and draped in usual sterile fashion. Skin anesthetized with 1% lidocaine. Lumbar puncture performed using a 3.5inch 22 gauge needle with stylet. Atraumatic tap was obtained on the 3rd attempt. Opening pressure was not performed. Approximately 4 milliliters of clear fluid were removed in usual manner without any problems. Closing pressure was not recorded. Stylet replaced and needle withdrawn. CSF was sent to lab for analysis. Patient tolerated the procedure well. The patient was provided with written and verbal instructions. Critical Care: I have personally spent 33 minutes of critical care time in the direct management of this patient. This includes bedside care, interpretation of diagnostic studies, and testing, discussion with consultants, patient, and family members, and other required patient management activities. This 33 minutes is in excess of all separately billable procedures. 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 Asthma Chronic antral gastritis Hypogammaglobulinemia Allergic rhinitis Chronic fatigue syndrome Varicose veins of bilateral lower extremities with pain Chronic sinusitis Anxiety Surgical History History of sinus surgery History of esophagogastroduodenoscopy (EGD) Hx of hand surgery (2021) History of nasal surgery (2014) History of knee surgery Family History Grandfather (Paternal) Colorectal cancer Grandfather (Maternal) Myocardial infarction Stroke Hypertension Aunt Ovarian cancer Grandmother (Maternal) Hypertension Other No known health problems Denies family history of Prostate cancer Breast cancer Social History Smoking Status: Never smoker Second Hand Exposure: No; Do You Dip or Chew Tobacco: No; Hx Alcohol Use: No Hx Substance Use: No Preferred Language: Greek Communication Ability: Effective [employer] Assistants Required: No Beliefs That Will Affect Care: None marital status: Current Living Situation: Spouse and Family Current Living Situation Comment: and child current occupational status: unemployed Feels Safe at Home: Yes Childhood Exposure to Second-Hand Smoke: No Dental Care, Regularly: Yes Physical Activity Frequency: Does not Exercise Seatbelt Use: always Sunscreen Use: Yes Assistive Devices: None Allergies Allergies Allergy/AdvReac Type Severity Reaction Status Date / Time nickel Allergy Intermediate Redness of Verified 03/22/25 09:32 Skin Home Meds Home Medications Medication Instructions Recorded Confirmed etonogestrel 0.12 mg-ethinyl 1 vag ring vaginal UD 09/08/24 04/16/25 estradiol 0.015 mg/24 hr vaginal ring (NuvaRing) azelastine 137 mcg (0.1 %) nasal 1 spray intranasal HS 11/29/24 04/16/25 spray coenzyme Q10 150 mg capsule 150 mg PO DAILY 11/29/24 04/16/25 budesonide-formoterol HFA 160 2 puff inhalation UD PRN SOB 03/06/25 04/16/25 mcg-4.5 mcg/actuation aerosol inhaler (Symbicort) propranolol 10 mg tablet 10 mg PO UD PRN tachycardia from 03/06/25 04/16/25 atomoxetine Previous Rx's Medication Instructions Recorded albuterol sulfate 90 mcg/actuation 2 inh inhalation QID PRN shortness 06/03/24 aerosol inhaler of breath or wheezing #8.5 grams methocarbamol 750 mg tablet 750 mg PO TID PRN muscle pain #90 06/30/24 tabs atomoxetine 25 mg capsule 50 mg (2 x 25 mg) PO BID #60 caps 03/08/25 triamcinolone acetonide 0.1 % 1 applic topical BID #30 grams 03/08/25 topical ointment valacyclovir 1 gram tablet 2,000 mg (2 x 1 gram) PO DAILY PRN 03/08/25 (Valtrex) Cold Sores #20 tabs budesonide 0.5 mg/2 mL suspension 0.5 mg (2 mL) irrigation DAILY #60 04/06/25 for nebulization mL levofloxacin 500 mg tablet 500 mg PO Q24H 7 days #7 tabs 04/13/25 Results & Data (ED) Vital Signs Vital Signs - 24 hr 04/16/25 08:26 04/16/25 08:53 04/16/25 10:20 Temperature 36.7 C Temperature Source Temporal Artery Scan Pulse Rate 115 H 111 H Pulse Rate [Left Finger] 100 H Respiratory Rate 18 20 Respiratory Effort / Characteristics Non-Labored Spontaneous Respiratory Depth Normal Respiratory Pattern Regular Blood Pressure 115/83 Blood Pressure [Left Arm] 122/72 Blood Pressure Mean 93 Blood Pressure Mean [Left Arm] 88 Blood Pressure Position Sitting Pulse Oximetry 99 98 Oxygen Delivery Method Room Air Sepsis Recent Fever Within 48 Hours No Sepsis New/Unexplained Change in Mental Status N/A Sepsis Action Taken by Nursing No Action Required 04/16/25 11:13 Temperature Temperature Source Pulse Rate Pulse Rate [Left Finger] Respiratory Rate Respiratory Effort / Characteristics Respiratory Depth Respiratory Pattern Blood Pressure 117/71 Blood Pressure [Left Arm] Blood Pressure Mean 80 Blood Pressure Mean [Left Arm] Blood Pressure Position Pulse Oximetry Oxygen Delivery Method Sepsis Recent Fever Within 48 Hours Sepsis New/Unexplained Change in Mental Status Sepsis Action Taken by Nursing Laboratory Data 04/16/25 08:59 04/16/25 08:59 Lab Results 04/16/25 04/16/25 04/16/25 Range/Units 08:59 09:02 09:50 WBC 10.45 (4.8-10.8) K/ul RBC 4.94 (4.20-5.40) M/uL Hgb 14.7 (12.0-16.0) g/dl Hct 42.4 (37.0-47.0) % MCV 85.8 (80.0-100.0) fL MCH 29.8 (25.0-34.0) pg MCHC 34.7 (32.0-36.0) g/dL RDW Std Deviation 37.8 (36.4-46.3) fL RDW Coeff of Augusto 12.0 (11.5-14.5) % Plt Count 277 (130-400) K/uL MPV 10.1 (9.4-12.4) fL Immature Gran % (Auto) 0.3 % Neut % (Auto) 83.9 % Lymph % (Auto) 11.3 % [place] % (Auto) 4.3 % Eos % (Auto) 0.1 % Baso % (Auto) 0.1 % Neut # (Auto) 8.77 H (1.40-6.50) K/uL Lymph # (Auto) 1.18 L (1.20-3.40) K/uL [place] # (Auto) 0.45 (0.11-0.59) K/uL Eos # (Auto) 0.01 (0.00-0.50) K/uL Baso # (Auto) 0.01 (0.00-0.20) K/uL Immature Gran # (Auto) 0.03 (0.01-0.20) K/uL Sodium 137 (136-145) mmol/L Potassium 3.4 L (3.5-5.1) mmol/L Chloride 102 (98-107) mmol/L Carbon Dioxide 25 (21-32) mmol/L Anion Gap 10 (3-11) BUN 11 (6-23) mg/dl Creatinine 0.82 (0.6-1.2) mg/dl Est Cr Clr Drug Dosing 88.6 ml/min eGFR 97.41 BUN/Creatinine Ratio 13.4 (10-20) Glucose 113 H (70-99(Fasting)) mg/dl Calcium 9.5 (8.6-10.3) mg/dl Total Bilirubin 0.4 (0.2-1.0) mg/dl AST 15 (13-39) U/L ALT 13 (7-52) U/L Alkaline Phosphatase 81 (34-104) U/L Total Protein 7.8 (6.0-8.3) gm/dl Albumin 4.2 (3.4-5.0) gm/dl Globulin 3.6 (2.5-4.0) gm/dl Albumin/Globulin Ratio 1.2 (0.9-2) Lipase 14 (11-82) U/L Procalcitonin 0.03 (0-0.5) ng/ml Urine Color Yellow Urine Appearance Clear (Clear) Urine pH 5.5 (4.5-7.5) Ur Specific [place] 1.028 (1.000-1.030) Urine Protein 1+ H (Negative) Urine Glucose (UA) Negative (Negative) Urine Ketones 2+ H (Negative) Urine Blood Trace H (Negative) Urine Nitrite Negative (Negative) Urine Bilirubin Negative (Negative) Urine Urobilinogen Negative (Negative) Ur Leukocyte Esterase Negative (Negative) Urine WBC (Auto) 0-5 (0-5) /hpf Urine RBC (Auto) 3-5 H (0-2) /hpf U Hyaline Cast (Auto) 0-2 (0-2) /lpf U Epithel Cells (Auto) 6-10 H (0-2) /hpf Urine Bacteria (Auto) 1+ H (None Seen) Urine Comment Fluid Comment CSF Appearance CSF Color Xanthrochromic CSF WBC (0-5) CSF RBC (0) CSF Cell Count Tube # CSF Chemistry Tube # CSF Glucose (40-70) mg/dl CSF Total Protein (15-45) mg/dl Adenovirus (PCR) Not Detected (NotDetected) B. pertussis DNA (PCR) Not Detected (NotDetected) B.parapertussis DNA PCR Not Detected (NotDetected) C. pneumoniae DNA (PCR) Not Detected (NotDetected) Coronavirus OC43 (PCR) Not Detected (NotDetected) Coronavirus HKU1 (PCR) Not Detected (NotDetected) Coronavirus 229E (PCR) Not Detected (NotDetected) SARS-CoV-2 (PCR) Not Detected (NotDetected) Coronavirus NL63 (PCR) Not Detected (NotDetected) Monoscreen Negative (Negative) Human Metapneumovir PCR Not Detected (NotDetected) Influenza Type A (PCR) Not Detected (NotDetected) Influenza Type B (PCR) Not Detected (NotDetected) M. pneumoniae (PCR) Not Detected (NotDetected) Parainfluenza 1 (PCR) Not Detected (NotDetected) Parainfluenza 2 (PCR) Not Detected (NotDetected) Parainfluenza 3 (PCR) Not Detected (NotDetected) Parainfluenza 4 (PCR) Not Detected (NotDetected) RSV (PCR) Not Detected (NotDetected) Entero/Rhino (PCR) Not Detected (NotDetected) Group A Strep (PCR) NOT DETECTED (NotDetected) 04/16/25 Range/Units 11:14 WBC (4.8-10.8) K/ul RBC (4.20-5.40) M/uL Hgb (12.0-16.0) g/dl Hct (37.0-47.0) % MCV (80.0-100.0) fL MCH (25.0-34.0) pg MCHC (32.0-36.0) g/dL RDW Std Deviation (36.4-46.3) fL RDW Coeff of Augusto (11.5-14.5) % Plt Count (130-400) K/uL MPV (9.4-12.4) fL Immature Gran % (Auto) % Neut % (Auto) % Lymph % (Auto) % [place] % (Auto) % Eos % (Auto) % Baso % (Auto) % Neut # (Auto) (1.40-6.50) K/uL Lymph # (Auto) (1.20-3.40) K/uL [place] # (Auto) (0.11-0.59) K/uL Eos # (Auto) (0.00-0.50) K/uL Baso # (Auto) (0.00-0.20) K/uL Immature Gran # (Auto) (0.01-0.20) K/uL Sodium (136-145) mmol/L Potassium (3.5-5.1) mmol/L Chloride (98-107) mmol/L Carbon Dioxide (21-32) mmol/L Anion Gap (3-11) BUN (6-23) mg/dl Creatinine (0.6-1.2) mg/dl Est Cr Clr Drug Dosing ml/min eGFR BUN/Creatinine Ratio (10-20) Glucose (70-99(Fasting)) mg/dl Calcium (8.6-10.3) mg/dl Total Bilirubin (0.2-1.0) mg/dl AST (13-39) U/L ALT (7-52) U/L Alkaline Phosphatase (34-104) U/L Total Protein (6.0-8.3) gm/dl Albumin (3.4-5.0) gm/dl Globulin (2.5-4.0) gm/dl Albumin/Globulin Ratio (0.9-2) Lipase (11-82) U/L Procalcitonin (0-0.5) ng/ml Urine Color Urine Appearance (Clear) Urine pH (4.5-7.5) Ur Specific [place] (1.000-1.030) Urine Protein (Negative) Urine Glucose (UA) (Negative) Urine Ketones (Negative) Urine Blood (Negative) Urine Nitrite (Negative) Urine Bilirubin (Negative) Urine Urobilinogen (Negative) Ur Leukocyte Esterase (Negative) Urine WBC (Auto) (0-5) /hpf Urine RBC (Auto) (0-2) /hpf U Hyaline Cast (Auto) (0-2) /lpf U Epithel Cells (Auto) (0-2) /hpf Urine Bacteria (Auto) (None Seen) Urine Comment Fluid Comment CSF Appearance Clear CSF Color Colorless Xanthrochromic No xanthochromia CSF WBC 2 (0-5) CSF RBC 246 (0) CSF Cell Count Tube # 3 CSF Chemistry Tube # 1 CSF Glucose 59 (40-70) mg/dl CSF Total Protein 40.8 (15-45) mg/dl Adenovirus (PCR) (NotDetected) B. pertussis DNA (PCR) (NotDetected) B.parapertussis DNA PCR (NotDetected) C. pneumoniae DNA (PCR) (NotDetected) Coronavirus OC43 (PCR) (NotDetected) Coronavirus HKU1 (PCR) (NotDetected) Coronavirus 229E (PCR) (NotDetected) SARS-CoV-2 (PCR) (NotDetected) Coronavirus NL63 (PCR) (NotDetected) Monoscreen (Negative) Human Metapneumovir PCR (NotDetected) Influenza Type A (PCR) (NotDetected) Influenza Type B (PCR) (NotDetected) M. pneumoniae (PCR) (NotDetected) Parainfluenza 1 (PCR) (NotDetected) Parainfluenza 2 (PCR) (NotDetected) Parainfluenza 3 (PCR) (NotDetected) Parainfluenza 4 (PCR) (NotDetected) RSV (PCR) (NotDetected) Entero/Rhino (PCR) (NotDetected) Group A Strep (PCR) (NotDetected) Administered Medications Vancomycin HCl 1,250 mg/ (Sodium Chloride) 525 mls @ 200 mls/hr IV NOW ONE Stop: 04/16/25 13:51 Last Admin: 04/16/25 11:51 Dose: 200 mls/hr Documented By: TERESA Discontinued Medications Acetaminophen (Acetaminophen 325 Mg Tab) 650 mg PO NOW STA Stop: 04/16/25 09:22 Last Admin: 04/16/25 09:29 Dose: 650 mg Documented By: TERESA Dexamethasone (Dexamethasone Sod Inj 4 Mg/Ml Vial) 10 mg IV NOW STA Stop: 04/16/25 11:26 Last Admin: 04/16/25 11:53 Dose: 10 mg Documented By: TERESA Diphenhydramine HCl (Diphenhydramine 50 Mg/Ml Vial) 50 mg IV NOW STA Stop: 04/16/25 11:31 Last Admin: 04/16/25 11:38 Dose: 50 mg Documented By: TERESA Sodium Chloride (Nss) 1,000 mls @ 999 mls/hr IV .Q1H1M ONE Stop: 04/16/25 09:43 Last Infusion: 04/16/25 10:00 Dose: Infused Documented By: Admin: 04/16/25 08:59 Dose: 999 mls/hr Documented By: TERESA Ceftriaxone Sodium (Rocephin) 2,000 mg in 50 mls @ 100 mls/hr IV NOW STA Stop: 04/16/25 09:22 Last Infusion: 04/16/25 10:20 Dose: Infused Documented By: Admin: 04/16/25 09:51 Dose: 100 mls/hr Documented By: TERESA Ioversol (Optiray 320 100ml) 94 ml IV ONCE ONE Stop: 04/16/25 09:14 Last Admin: 04/16/25 09:13 Dose: 94 ml Documented By: ATA Ketorolac Tromethamine (Ketorolac Tromethamine 15 Mg/Ml Vial) 10 mg IV NOW ONE Stop: 04/16/25 11:31 Last Admin: 04/16/25 11:38 Dose: 10 mg Documented By: TERESA Imaging Data Radiologist's Impression: Chest X-Ray 04/16/25 08:43 SINGLE VIEW CHEST CLINICAL HISTORY: Chest pain FINDINGS: An AP, portable, upright chest radiograph is compared to study dated 02/01/2025. The cardiomediastinal silhouette is unremarkable. The lungs and pleural spaces are clear. No pneumothorax is seen. The bony thorax is grossly intact. IMPRESSION: No active disease in the chest. ACT 112: Negative or not required by law. Electronically signed by: Dat Tavera M.D. 04/16/2025 9:[address] 04/16/25 08:43 CT SCAN OF THE BRAIN WITHOUT IV CONTRAST CLINICAL HISTORY: Facial pain. Reported history of recent surgery. COMPARISON STUDY: No priors TECHNIQUE: Unenhanced CT scan of the brain is performed from the vertex to the skull base. Images are reviewed in the axial, sagittal, and coronal planes. A dose lowering technique was utilized adhering to the principles of ALARA. CT DOSE: 1138.87 mGy.cm FINDINGS: Brain parenchyma: The brain parenchyma is normal in appearance. There is no hemorrhage, mass effect, or evidence of acute territorial ischemia by CT criteria. Hernandez-white matter differentiation is preserved. No extra-axial fluid collection is seen. Ventricles, sulci, cisterns: Normal in configuration. Intracranial vasculature: The visualized intracranial vasculature at the skull base is normal in appearance. Calvarium: Unremarkable. Sinuses and mastoids: There is evidence of previous paranasal sinus surgery. Moderate mucosal thickening is noted in the partially imaged right maxillary antrum. There is moderate mucosal thickening in the imaged left maxillary antrum, the ethmoid sinuses, and the left frontal sinus. The left sphenoid sinus is subtotally opacified. The mastoid air cells are well pneumatized. Orbits: The bony orbits are grossly intact. IMPRESSION: No acute intracranial abnormality. ACT 112: Negative or not required by law. Electronically signed by: Dat Tavera M.D. 04/16/2025 9:[address] 04/16/25 08:43 CT SCAN OF THE PARANASAL SINUSES WITH IV CONTRAST CLINICAL HISTORY: Facial pain. Reported history of recent surgery. COMPARISON STUDY: CT of the paranasal sinuses dated 07/06/2024 TECHNIQUE: High-resolution CT scan of the paranasal sinuses is performed following the IV administration of 94 cc of Optiray 320. Images are reviewed in the axial, sagittal, and coronal planes. IV contrast was administered without complication. A dose lowering technique was utilized adhering to the principles of ALARA. FINDINGS: Postsurgical change: There is postsurgical change from maxillary antrectomy with antrostomy formation and ethmoid sinus resection. Maxillary antra: There is moderate mucosal thickening in the right maxillary antrum. Mild mucosal thickening is seen on the left. Anterior ethmoid sinuses: Mild mucosal thickening in the left. Trace mucosal thickening in the right. Posterior ethmoid sinuses: Trace mucosal thickening of the left. Clear on the right. Sphenoid sinuses: There is subtotal opacification of the left sphenoid sinus. The right sphenoid sinus is clear. Frontal sinuses: Trace dependent mucosal thickening is seen bilaterally. Ostiomeatal complexes: The antrostomies are patent bilaterally. Frontoethmoidal and sphenoethmoidal recesses: The left sphenoethmoidal recess is occluded. The right sphenoethmoidal recess and the frontoethmoidal recesses are clear. Carotid arteries: The carotid arteries are covered routine bilateral septal attachments. Ethmoid roofs: The ethmoid roofs are symmetric. Nasal turbinates: The left middle nasal turbinate is diminutive. The terminates are otherwise normal In appearance. Nasal septum: There is mild leftward deviation of the bony nasal septum. Optic nerves: Covered. Orbits: The bony orbits are intact. Orbital contents are normal in appearance. Calvarium: The imaged calvarium is normal in appearance Mastoid air cells: Well pneumatized. Brain parenchyma: Normal as imaged. IMPRESSION: Postsurgical change and paranasal sinus disease as above. ACT 112: Negative or not required by law. Electronically signed by: Dat Tavera M.D. 04/16/2025 9:48 AM Discharge Plan Visit Data Chief Complaint: Illness Stated Complaint: FEVER & MENINGITIS, REF BY DOC ED Provider: Jamie Nam Discharge Problem: Sinusitis, Headache, Fever Condition: Serious Forms Stand Alone Forms: My [facility] [place] [employer] Prescriptions Prescriptions: No Action methocarbamol 750 mg tablet 750 mg PO TID PRN (Reason: muscle pain) Qty: 90 0RF levofloxacin 500 mg tablet 500 mg PO Q24H 7 Days Qty: 7 0RF albuterol sulfate 90 mcg/actuation HFA aerosol inhaler 2 inh inhalation QID PRN (Reason: shortness of breath or wheezing) Qty: 8.5 0RF etonogestrel-ethinyl estradiol [NuvaRing] 0.12-0.015 mg/24 hr ring 1 vag ring vaginal UD budesonide 0.5 mg/2 mL suspension for nebulization 0.5 mg irrigation DAILY Qty: 60 3RF atomoxetine 25 mg capsule 50 mg PO BID Qty: 60 2RF valacyclovir [Valtrex] 1 gram tablet 2,000 mg PO DAILY PRN (Reason: Cold Sores) Qty: 20 0RF triamcinolone acetonide 0.1 % ointment 1 applic topical BID Qty: 30 0RF Rx Instructions: for 2 weeks then as needed coenzyme Q10 150 mg Capsule 150 mg PO DAILY azelastine 137 mcg (0.1 %) spray,non-aerosol 1 spray intranasal HS Hold Instructions: Resume on 03/24/25. propranolol 10 mg Tablet 10 mg PO UD PRN (Reason: tachycardia from atomoxetine) budesonide-formoterol [Symbicort] 160-4.5 mcg/actuation HFA aerosol inhaler 2 puff inhalation UD PRN (Reason: SOB) Rx Instructions: INHALE 2 PUFFS TWICE DAILY AND THEN EVERY 4-6 HOURS NEEDED PER SMART THERAPY GUIDELINES, MAX 12 PUFFS IN 24 HOURS. Referrals Referrals: Valentine Fuller DO [Primary Care Provider] - Discharge Problem: Sinusitis Qualifiers: Sinusitis location: unspecified location Chronicity: unspecified Qualified Code(s): J32.9 - Chronic sinusitis, unspecified Headache Qualifiers: Headache type: unspecified Headache chronicity pattern: unspecified pattern I ntractability: not intractable Qualified Code(s): R51.9 - Headache, unspecified Fever Qualifiers: Fever type: unspecified Qualified Code(s): R50.9 - Fever, unspecified
[2025-04-16] MEDS: SODIUM CHLORIDE 0.9% 1,000 ML IV ONE (08:59)
[2025-04-16] MEDS: OPTIRAY 320 100ml IV ONE (09:13)
[2025-04-16 09:25] LABS: Hematocrit (blood only) 42.4 % (37.0-47.0); Hemoglobin 14.7 g/dl (12.0-16.0); Immature Granulocytes # (auto) 0.03 K/uL (0.01-0.20); Immature Granulocytes % (auto) 0.3 %; Mean Corpuscular Hemoglobin 29.8 pg (25.0-34.0); Mean Corpuscular Volume 85.8 fL (80.0-100.0); Platelet Count 277 K/uL (130-400); RDW Standard Deviation 37.8 fL (36.4-46.3); Red Blood Count 4.94 M/uL (4.20-5.40); White Blood Count 10.45 K/ul (4.8-10.8)
[2025-04-16] MEDS: ACETAMINOPHEN 325 MG TAB PO STA (09:29)
--- NOTE | 2025-04-16 09:35 | XRay Report ---
SINGLE VIEW CHEST CLINICAL HISTORY: Chest pain FINDINGS: An AP, portable, upright chest radiograph is compared to study dated 02/01/2025. The cardiome diastinal silhouette is unremarkable. The lungs and pleural spaces are clear. No pneumothorax is seen . The bony thorax is grossly intact. IMPRESSION: No active disease in the chest. ACT 112: Negative or not required by law. Electronically signed by: Dat Tavera M.D. 04/16/2025 9:33 AM
--- NOTE | 2025-04-16 09:39 | CT Scan Report ---
CT SCAN OF THE BRAIN WITHOUT IV CONTRAST CLINICAL HISTORY: Facial pain. Reported history of recent surgery. COMPARISON STUDY: No priors TECHNIQUE: Unenhanced CT scan of the brain is performed from the vertex to the skull base. Images are reviewed in the axial, sagittal, and coronal planes. A dose lowering technique was utilized adherin g to the principles of ALARA. CT DOSE: 1138.87 mGy.cm FINDINGS: Brain parenchyma: The brain parenchyma is normal in appearance. There is no hemorrhage, mass effect, or evidence of acute territorial ischemia by CT criteria. Hernandez-white matter differentiation is preser vladimir. No extra-axial fluid collection is seen. Ventricles, sulci, cisterns: Normal in configuration. Intracranial vasculature: The visualized intracranial vasculature at the skull base is normal in appe arance. Calvarium: Unremarkable. Sinuses and mastoids: There is evidence of previous paranasal sinus surgery. Moderate mucosal thicken ing is noted in the partially imaged right maxillary antrum. There is moderate mucosal thickening in the imaged left maxillary antrum, the ethmoid sinuses, and the left frontal sinus. The left sphenoid sinus is subtotally opacified. The mastoid air cells are well pneumatized. Orbits: The bony orbits are grossly intact. IMPRESSION: No acute intracranial abnormality. ACT 112: Negative or not required by law. Electronically signed by: Dat Tavera M.D. 04/16/2025 9:37 AM
[2025-04-16 09:42] LABS: Alanine Aminotransferase 13.0 U/L (7-52); Albumin Globulin Ratio 1.2 (0.9-2); Albumin Level 4.2 gm/dl (3.4-5.0); Alkaline Phosphatase 81.0 U/L (34-104); Anion Gap 10.0 (3-11); Bilirubin,Total 0.4 mg/dl (0.2-1.0); Blood Urea Nitrogen 11.0 mg/dl (6-23); Calcium 9.5 mg/dl (8.6-10.3); Carbon Dioxide 25.0 mmol/L (21-32); Chloride 102.0 mmol/L (98-107); Creatinine Clr Calc Pharmacy 88.6 ml/min; Globulin 3.6 gm/dl (2.5-4.0); Glucose 113.0 mg/dl (70-99(Fasting)); Lipase 14.0 U/L (11-82); Potassium 3.4 mmol/L (3.5-5.1); Sodium 137.0 mmol/L (136-145); Total Protein 7.8 gm/dl (6.0-8.3)
--- NOTE | 2025-04-16 09:50 | CT Scan Report ---
CT SCAN OF THE PARANASAL SINUSES WITH IV CONTRAST CLINICAL HISTORY: Facial pain. Reported history of recent surgery. COMPARISON STUDY: CT of the paranasal sinuses dated 07/06/2024 TECHNIQUE: High-resolution CT scan of the paranasal sinuses is performed following the IV administra tion of 94 cc of Optiray 320. Images are reviewed in the axial, sagittal, and coronal planes. IV cont rast was administered without complication. A dose lowering technique was utilized adhering to the p rinciples of ALARA. FINDINGS: Postsurgical change: There is postsurgical change from maxillary antrectomy with antrostomy formation and ethmoid sinus resection. Maxillary antra: There is moderate mucosal thickening in the right maxillary antrum. Mild mucosal thi ckening is seen on the left. Anterior ethmoid sinuses: Mild mucosal thickening in the left. Trace mucosal thickening in the right. Posterior ethmoid sinuses: Trace mucosal thickening of the left. Clear on the right. Sphenoid sinuses: There is subtotal opacification of the left sphenoid sinus. The right sphenoid sinu s is clear. Frontal sinuses: Trace dependent mucosal thickening is seen bilaterally. Ostiomeatal complexes: The antrostomies are patent bilaterally. Frontoethmoidal and sphenoethmoidal recesses: The left sphenoethmoidal recess is occluded. The right sphenoethmoidal recess and the frontoethmoidal recesses are clear. Carotid arteries: The carotid arteries are covered routine bilateral septal attachments. Ethmoid roofs: The ethmoid roofs are symmetric. Nasal turbinates: The left middle nasal turbinate is diminutive. The terminates are otherwise normal In appearance. Nasal septum: There is mild leftward deviation of the bony nasal septum. Optic nerves: Covered. Orbits: The bony orbits are intact. Orbital contents are normal in appearance. Calvarium: The imaged calvarium is normal in appearance Mastoid air cells: Well pneumatized. Brain parenchyma: Normal as imaged. IMPRESSION: Postsurgical change and paranasal sinus disease as above. ACT 112: Negative or not required by law. Electronically signed by: Dat Tavera M.D. 04/16/2025 9:48 AM
[2025-04-16] MEDS: cefTRIAXone SODIUM 2,000 MG/50 ML BAG IV STA (09:51)
[2025-04-16 10:03] LABS: Appearance Urine Clear (Clear); Bacteria Urine Automated 1+ (None Seen); Cast Urine Automated 0-2 /lpf (0-2); Glucose Urine UA Negative (Negative); WBC Urine Automated 0-5 /hpf (0-5)
[2025-04-16 10:14] LABS: Chlamydia pneumoniae PCR Not Detected (NotDetected); Coronavirus 229E PCR Not Detected (NotDetected); Coronavirus CoV-2 (COVID19)PCR Not Detected (NotDetected); Coronavirus HKU1 PCR Not Detected (NotDetected); Coronavirus NL63 PCR Not Detected (NotDetected); Coronavirus OC43PCR Not Detected (NotDetected); Human Metapneumovirus PCR Not Detected (NotDetected); Parainfluenza Virus 1 PCR Not Detected (NotDetected); Parainfluenza Virus 2 PCR Not Detected (NotDetected); Parainfluenza Virus 3 PCR Not Detected (NotDetected); Parainfluenza Virus 4 PCR Not Detected (NotDetected); Respiratory Syncytial VirusPCR Not Detected (NotDetected); Rhinovirus/Enterovirus PCR Not Detected (NotDetected)
[2025-04-16] MEDS ORDERED: VANCOMYCIN CONSULT ACTIVE PRN (11:14)
[2025-04-16] MEDS: diphenhydrAMINE 50 MG/ML VIAL IV STA (11:38)
[2025-04-16] MEDS: KETOROLAC TROMETHAMINE 15 MG/ML VIAL IV ONE (11:38)
[2025-04-16] MEDS: VANCOMYCIN HCL 1,250 MG in SODIUM CHLORIDE 0.9% 500 ML IV ONE (11:51)
[2025-04-16] MEDS: DEXAMETHASONE SOD INJ 4 MG/ML VIAL IV STA (11:53)
[2025-04-16 11:58] LABS: CSF Count Tube # 3; CSF Xanthrochromic No xanthochromia; Red Blood Cell CSF Manual 246 (0); White Blood Cell CSF Manual 2 (0-5)
[2025-04-16 13:07] LABS: Cryptococcus neoformans/ga PCR Not Detected (NotDetected); Escherichia coli K1 PCR Not Detected (NotDetected); Haemophilius influenzae PCR Not Detected (NotDetected); Herpes Simplex Virus 1 PCR Not Detected (NotDetected); Herpes Simplex Virus 2 PCR Not Detected (NotDetected); Human Herpes Virus 6 PCR Not Detected (NotDetected); Human Parechovirus PCR Not Detected (NotDetected); Listeria monocytogenes PCR Not Detected (NotDetected); Neisseria meningitidis PCR Not Detected (NotDetected); Streptococcus agalactiae PCR Not Detected (NotDetected); Streptococcus pneumoniae PCR Not Detected (NotDetected)
[2025-04-16] MEDS ORDERED: METHOCARBAMOL 750 MG TABLET PO PRN (13:15)
[2025-04-16] MEDS ORDERED: ALBUTEROL HFA 8 GM INHALER INH PRN (13:15)
--- NOTE | 2025-04-16 13:42 | History & Physical Report ---
Date of Service April 16, 2025 Assessment & Plan (1) Allergic rhinitis: (2) Chronic sinusitis: (3) S/P functional endoscopic sinus surgery: (4) Recurrent acute sinusitis: Plan Familia Massey is a 34 y/o F with a past medical history of recurrent acute sinusitis s/p functional endoscopic sinus surgery 03/10/25, asthma, back pain, anxiety, ADHD arriving to the [facility] ED due to neck pain, headache, and fever. Patient with positive right maxillary sinus cultures for N. meningitidis, headaches, fevers and neck pain concerning for meningitis. LP completed with negative gram stain, CSF studies pending, and 1x ceftriaxone/vancomycin dose given in ED. Patient with improvements in neck pain, fevers, and headaches with Tylenol/Toradol therapy. Recurrent acute sinusitis/acute on chronic sinusitis/allergic rhinosinusitis - Patient is followed by ENT/Allergy with recent FESS due to recurrent sinusitis symptoms - Patient reports 12 occurrences of acute sinusitis over the past year and was recently on cefdinir/Levaquin outpatient therapy [employer] ADVISOR LEAD - Sinus CT (04/16/25): Post-surgical change s/p FESS and paranasal sinus disease with mild to moderate mucosal thickening in maxillary antra, mild to trace mucosal thickening in ethmoid, subtotal opacification of L. sphenoid, and trace mucosal thickening of frontal sinuses - Sinus CT (07/06/24): No significant paranasal sinus disease, patent sinus outflow tracts - 1x 2g Ceftriaxone, 1x 1250mg Vancomycin, 1x 10mg dexamethasone, and 1L NSS bolus treatments given in ED - BioFire: negative, CSF: Protein, glucose, WBC wnl, viral/bacterial studies and gram-stain negative. Aseptic/Bacterial meningitis very unlikely based on CSF studies, CSF culture pending. - BCx x2 taken and pending - Labs: Significant for neutrophilia w/o leukocytosis and UA: positive for 1+ protein, 2+ ketones, trace blood, and 1+ bacteria - Continue IV Ceftriaxone 2g Q24H for recurrence of acute on chronic bacterial rhinosinusitis with positive 10/9 N. meningitidis cx - CBC QAM Chronic problems: Asthma: Continue albuterol sulfate 90mcg 2inh QID PRN ADHD: atomoxetine held; patient reports tachycardia from this medication Chronic back pain: methocarbamol 750mg PO TID PRN FEN-GI: Regular diet DVT proph: Lovenox 40mg Q24H Dispo: Transition to PO abx prior to d/c home History of Present Illness Primary Care Provider: Valentine Fuller DO Familia Massey is a 34 y/o F with a past medical history of recurrent acute sinusitis s/p functional endoscopic sinus surgery 03/10/25, asthma, back pain, anxiety, ADHD arriving to the [facility] ED due to neck pain, headache, and fever. 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 Patient reports that she was supposed to have further studies completed next week as an outpatient with Dr. Flores as this is the 12th occurrence of acute sinusitis. Patient was treated with a 7 day outpatient course of cefdinir, followed by Levaquin therapy as she was continuing to have green nasal discharge. Patient reports that her fevers and headache began last night, and she has been using Tylenol to control this. Patient reports that her neck pain has been chronic for the past 3 months, but has acutely worsened since this past Thursday. Patient denies photophobia, vision changes, confusion, AMS, or neck rigidity. Patient is alert and oriented and reports full ROM of her neck, but with increased tenderness with full flexion motions. Patient reports that after her LP procedure she has had initial worsened headache 10/10, and reports that this pain greatly reduced when lying flat. Reports increasing headache when sitting up to a 4-5/10. Patient also notes some nausea after her dose of toradol, but does feel that pain has decreased, and only exacerbated shortly after LP. Patient remains afebrile and hemodynamically stable. Allergies Allergy/AdvReac Type Severity Reaction Status Date / Time nickel Allergy Intermediate Redness of Verified 03/22/25 09:32 Skin Home Medications Medication Instructions Recorded Confirmed Type albuterol sulfate 90 mcg/actuation 2 inh inhalation QID PRN shortness 06/03/24 04/16/25 Rx aerosol inhaler of breath or wheezing #8.5 grams methocarbamol 750 mg tablet 750 mg PO TID PRN muscle pain #90 06/30/24 04/16/25 Rx tabs etonogestrel 0.12 mg-ethinyl 1 vag ring vaginal UD 09/08/24 04/16/25 History estradiol 0.015 mg/24 hr vaginal ring (NuvaRing) azelastine 137 mcg (0.1 %) nasal 1 spray intranasal HS 11/29/24 04/16/25 History spray coenzyme Q10 150 mg capsule 150 mg PO DAILY 11/29/24 04/16/25 History budesonide-formoterol HFA 160 2 puff inhalation UD PRN SOB 03/06/25 04/16/25 History mcg-4.5 mcg/actuation aerosol inhaler (Symbicort) propranolol 10 mg tablet 10 mg PO UD PRN tachycardia from 03/06/25 04/16/25 History atomoxetine atomoxetine 25 mg capsule 50 mg (2 x 25 mg) PO BID #60 caps 03/08/25 04/16/25 Rx triamcinolone acetonide 0.1 % 1 applic topical BID #30 grams 03/08/25 04/16/25 Rx topical ointment valacyclovir 1 gram tablet 2,000 mg (2 x 1 gram) PO DAILY PRN 03/08/25 04/16/25 Rx (Valtrex) Cold Sores #20 tabs budesonide 0.5 mg/2 mL suspension 0.5 mg (2 mL) irrigation DAILY #60 04/06/25 04/16/25 Rx for nebulization mL levofloxacin 500 mg tablet 500 mg PO Q24H 7 days #7 tabs 04/13/25 04/16/25 Rx 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 Asthma Chronic antral gastritis Hypogammaglobulinemia Allergic rhinitis Chronic fatigue syndrome Varicose veins of bilateral lower extremities with pain Chronic sinusitis Anxiety Surgical History History of sinus surgery History of esophagogastroduodenoscopy (EGD) Hx of hand surgery (2021) History of nasal surgery (2014) History of knee surgery Family History Grandfather (Paternal) Colorectal cancer Grandfather (Maternal) Myocardial infarction Stroke Hypertension Aunt Ovarian cancer Grandmother (Maternal) Hypertension Other No known health problems Denies family history of Prostate cancer Breast cancer Social History Smoking Status: Never smoker Second Hand Exposure: No; Do You Dip or Chew Tobacco: No; Hx Alcohol Use: No Hx Substance Use: No Preferred Language: Austrian Communication Ability: Effective 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 Skin: warm, dry, intact HEENT: NC/AT, anicteric sclera, conjunctiva without injection, moist mucus membranes. Heart: +S1/S2, tachycardic, no m/r/g Lungs: equal air entry bilaterally, no rales/rhonchi/wheezes Abd: +BS, soft, NT/ND Ext: warm, no clubbing/cyanosis or edema Neuro: nonfocal, speech intact, no facial droop, moving all extremities. Results & Data Results & Data Vital Signs (Past 12 Hours) Vital Signs Temp Pulse Pulse Resp BP BP Pulse Ox 04/16/25 11:13 117/71 04/16/25 10:20 100 H 20 122/72 98 04/16/25 08:53 111 H 04/16/25 08:26 36.7 C 115 H 18 115/83 99 O2 Del Method 04/16/25 11:13 10/19/25 10:20 04/16/25 08:53 04/16/25 08:26 Room Air Code Status & VTE Plan VTE Prophylaxis Plan VTE Prophylaxis will be ordered: Yes Resident Activity Tracking Resident Involvement: Resident Care Provided Care Provided: Adult Hospital Medicine (4) Recurrent acute sinusitis Sinusitis location: pansinusitis Qualified Code(s): J01.41 - Acute recurrent pansinusitis
[2025-04-16] MEDS ORDERED: ONDANSETRON INJ 2 MG/ML 2 ML VIAL IV PRN (15:46)
[2025-04-16] MEDS ORDERED: BUDESONIDE/FORMOTEROL FUMARATE 160/4.5 60 PUFFS/INHALER INH PRN (16:37)
[2025-04-16] MEDS: ENOXAPARIN INJ 40 MG/0.4 ML SYR SQ SCH (17:59)
[2025-04-16] MEDS ORDERED: PROPRANOLOL HCL 10 MG TAB PO PRN (18:39)
[2025-04-16] MEDS: ACETAMINOPHEN 325 MG TAB PO PRN (18:50)
--- NOTE | 2025-04-16 19:38 | Electrocardiogram Report ---
Test Reason : Blood Pressure : */* mmHG Vent. Rate : 113 BPM Atrial Rate : 113 BPM P-R Int : 136 ms QRS Dur : 74 ms QT Int : 322 ms P-R-T Axes : -28 -16 -35 degrees QTcB Int : 441 ms Sinus tachycardia Possible Inferior infarct , age undetermined Abnormal ECG When compared with ECG of 01-Feb-2025 22:56, Questionable change in QRS axis T wave inversion now evident in Inferior leads QRS voltage has decreased Confirmed by Ramakrishna Roland ([id number]) on 04/16/2025 7:38:29 PM Referred By: REFERRED SELF Confirmed By: Ramakrishna Roland
[2025-04-16] MEDS: AZELASTINE HCL 0.1% NASAL 200 SPRAYS/27,400 MCG BTL SCH (20:49)
[2025-04-16] MEDS: BUDESONIDE/FORMOTEROL FUMARATE 160/4.5 60 PUFFS/INHALER INH SCH (20:49)
[2025-04-17 07:30] LABS: Hematocrit (blood only) 33.1 % (37.0-47.0); Hemoglobin 11.5 g/dl (12.0-16.0); Immature Granulocytes # (auto) 0.02 K/uL (0.01-0.20); Immature Granulocytes % (auto) 0.3 %; Mean Corpuscular Hemoglobin 29.9 pg (25.0-34.0); Mean Corpuscular Volume 86.0 fL (80.0-100.0); Platelet Count 238 K/uL (130-400); RDW Standard Deviation 38.0 fL (36.4-46.3); Red Blood Count 3.85 M/uL (4.20-5.40); White Blood Count 7.65 K/ul (4.8-10.8)
[2025-04-17 07:35] VITALS: RESP 18
[2025-04-17 07:38] LABS: Anion Gap 7.0 (3-11); Blood Urea Nitrogen 8.0 mg/dl (6-23); Calcium 8.8 mg/dl (8.6-10.3); Carbon Dioxide 24.0 mmol/L (21-32); Chloride 109.0 mmol/L (98-107); Creatinine Clr Calc Pharmacy 127.5 ml/min; Glucose 108.0 mg/dl (70-99(Fasting)); Potassium 3.9 mmol/L (3.5-5.1); Sodium 140.0 mmol/L (136-145)
[2025-04-17] MEDS: cefTRIAXone SODIUM 2,000 MG/50 ML BAG IV SCH (08:01)
[2025-04-17] MEDS: ATOMOXETINE HCL 25 MG CAPSULE PO SCH (08:02)
[2025-04-17 14:36] VITALS: BP 114/77; PULSE 83; TEMP 98.8; O2SAT 97
--- NOTE | 2025-04-17 16:51 | Discharge Summary ---
Date of Service April 17, 2025 Admission HPI Per Admitting Provider Familia Massey is a 34 y/o F with a past medical history of recurrent acute sinusitis s/p functional endoscopic sinus surgery 03/10/25, asthma, back pain, anxiety, ADHD arriving to the [facility] ED due to neck pain, headache, and fever. 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 Patient reports that she was supposed to have further studies completed next week as an outpatient with Dr. Flores as this is the 12th occurrence of acute sinusitis. Patient was treated with a 7 day outpatient course of cefdinir, followed by Levaquin therapy as she was continuing to have green nasal discharge. Patient reports that her fevers and headache began last night, and she has been using Tylenol to control this. Patient reports that her neck pain has been chronic for the past 3 months, but has acutely worsened since this past Thursday. Patient denies photophobia, vision changes, confusion, AMS, or neck rigidity. Patient is alert and oriented and reports full ROM of her neck, but with increased tenderness with full flexion motions. Patient reports that after her LP procedure she has had initial worsened headache 10/10, and reports that this pain greatly reduced when lying flat. Reports increasing headache when sitting up to a 4-5/10. Patient also notes some nausea after her dose of toradol, but does feel that pain has decreased, and only exacerbated shortly after LP. Patient remains afebrile and hemodynamically stable. Admission Exam Per Admitting Provider General: patient resting comfortably, NAD, non-toxic in appearance, answers questions appropriately. Skin: warm, dry, intact HEENT: NC/AT, anicteric sclera, conjunctiva without injection, moist mucus membranes. Heart: +S1/S2, tachycardic, no m/r/g Lungs: equal air entry bilaterally, no rales/rhonchi/wheezes Abd: +BS, soft, NT/ND Ext: warm, no clubbing/cyanosis or edema Neuro: nonfocal, speech intact, no facial droop, moving all extremities. Principal Diagnosis Acute recurrent sinusitis Discharge Exam General: patient resting comfortably, NAD, non-toxic in appearance, answers questions appropriately. Skin: warm, dry, intact HEENT: NC/AT, anicteric sclera, conjunctiva without injection, moist mucus membranes. Heart: +S1/S2, tachycardic, no m/r/g Lungs: equal air entry bilaterally, no rales/rhonchi/wheezes Abd: +BS, soft, NT/ND Ext: warm, no clubbing/cyanosis or edema Neuro: nonfocal, speech intact, no facial droop, moving all extremities. Discharge Data Allergies Allergy/AdvReac Type Severity Reaction Status Date / Time nickel Allergy Intermediate Redness of Verified 03/22/25 09:32 Skin Consultations 04/16/25 11:33 ED Decision to Admit Stat Ordered Studies 04/16/25 08:43 CT head/brain wo con Stat CT sinus w con Stat Hospital Course (1) Allergic rhinitis: (2) Chronic sinusitis: (3) S/P functional endoscopic sinus surgery: (4) Recurrent acute sinusitis: Eduardo Massey is a 34 y/o F with a past medical history of recurrent acute sinusitis s/p functional endoscopic sinus surgery 03/10/25, asthma, back pain, anxiety, ADHD arriving to the [facility] ED due to neck pain, headache, and fever. Patient with positive right maxillary sinus cultures for N. meningitidis, headaches, fevers and neck pain concerning for meningitis. LP completed with negative gram stain, CSF studies pending, and 1x ceftriaxone/vancomycin dose given in ED. Patient with improvements in neck pain, fevers, and headaches with Tylenol/Toradol therapy. Recurrent acute sinusitis/acute on chronic sinusitis/allergic rhinosinusitis - Patient is followed by ENT/Allergy with recent FESS due to recurrent sinusitis symptoms - Patient reports 12 occurrences of acute sinusitis over the past year and was recently on cefdinir/Levaquin outpatient therapy NURSE PRACTITIONER - Sinus CT (04/16/25): Post-surgical change s/p FESS and paranasal sinus disease with mild to moderate mucosal thickening in maxillary antra, mild to trace mucosal thickening in ethmoid, subtotal opacification of L. sphenoid, and trace mucosal thickening of frontal sinuses - Sinus CT (07/06/24): No significant paranasal sinus disease, patent sinus outflow tracts - 1x 2g Ceftriaxone, 1x 1250mg Vancomycin, 1x 10mg dexamethasone, and 1L NSS bolus treatments given in ED - BioFire: negative, CSF: Protein, glucose, WBC wnl, viral/bacterial studies and gram-stain negative. Aseptic/Bacterial meningitis very unlikely based on CSF studies, CSF culture pending. - BCx x2 taken and pending - Labs: Significant for neutrophilia w/o leukocytosis and UA: positive for 1+ protein, 2+ ketones, trace blood, and 1+ bacteria - Continue IV Ceftriaxone 2g Q24H for recurrence of acute on chronic bacterial rhinosinusitis with positive 10/9 N. meningitidis cx - Stable for d/c likely viral sinusitis imposed on bacterial sinusitis that has cleared, recommend follow-up immunological studies with Dr. Flores next week to determine if immunodeficiency is cause of recurrent sinusitis episodes Chronic problems: Asthma: Continue albuterol sulfate 90mcg 2inh QID PRN ADHD: atomoxetine held; patient reports tachycardia from this medication Chronic back pain: methocarbamol 750mg PO TID PRN FEN-GI: Regular diet DVT proph: Lovenox 40mg Q24H Dispo: Transition to PO abx prior to d/c home Total Time Total Time Spent Total Time Spent (In Minutes): <30 Discharge Plan Discharge Items Patient Disposition: Home - Self-Care Reason For Visit: NECK PAIN, FEVERS Discharge Diagnosis: Acute recurrent sinusitis Condition on Discharge: Serious Activity: Per Instructions section Non-emergency contact: Primary Care Provider Call non-emergency contact if: your symptoms worsen and your pain is not controlled Follow-up/Referrals: Valentine Fuller DO [Primary Care Provider] - Diet: Regular Addtl Attending Provider Instructions: You were admitted to [facility] due to fever, headache and neck pain concerning for bacterial meningitis. A lumbar puncture was completed that did not show any evidence of a cerebral infection, and following labs did not show any acute ongoing infection. Today when seen you have reported that your symptoms have improved, with resolution of your headache and fevers. Your neck pain is likely related to the levator scapulae muscle as this was quite tender on palpation today and it seems that this neck pain has been chronic for the past 4-5 months and exacerbated by being hunched over looking at computer and phone screens. It will be useful to continue anti-inflammatory medications and steroid therapy and take a short leave from work until next Thursday to help with the healing process. Massages and stretches of the levator scapulae muscles will help speed up healing. As far as your recurrent acute sinusitis symptoms, it is likely multifactorial stemming from structural, environmental and infectious causes. In your case the structural component should be somewhat fixed after your recent endoscopic sinus surgery, but it would be helpful to follow up with ENT after your visit with Dr. Flores if sinus symptoms continue to reoccur. For the allergic component your inhalers should help control these symptoms, additionally a daily anti-histamine medication such as zyrtec, claritin or xyzal can help control these symptoms. Azelastine is an anti-histamine based inhaled medication and this should prevent allergies from causing obstruction which can often lead to infection. A steroid taper therapy will also help to reduce inflammation in the airways and nasal turbinates/sinuses to better allow for airflow in addition to anti-histamine and steroid based inhalers As for the infectious component, it is likely that the bacterial component of your sinusitis has been cleared as you do not have purulent drainage, leukocytosis, headaches, or fevers after a long course of oral antibiotics with a short course of IV antibiotics at the hospital. It is probable that it is easier to catch viral and sinusitis symptoms with a lower IgG level making immune memory worse at detecting the same viral and bacterial culprits. This is why it is important to follow-up with Dr. Flores's office next week and determine if your immunoglobulin levels are continuing to decrease or if they have remained stable. 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 Otherwise continue to control your symptoms with inhaler therapies, and additional treatments recommended by the Allergy and ENT teams. A 12 day Prednisone taper has been sent to your pharmacy. Please take 40mg on days 1-3, take 30mg on days 4-6, take 20mg on days 7-9 and take 10mg on days 10- 12. This is a total of 30, 10mg tablets and should be completed in a 12 day course. Please continue inhaler medications and nasal irrigation therapy. A work excuse note has been provided to allow for rest and recuperation through Tuesday 04/24. Follow-up appointments: Make a follow-up appointment with your PCP within the next week. It is very important that you follow up with them shortly after discharge from the hospital. Medications: Your medication list has been reviewed and reconciled upon discharge to ensure accuracy and continuity of care. An updated list of all your medications is included with your hospital discharge paperwork. Please review this list closely, and make note of any changes. Take your medications as instructed; do not skip a dose of your medicines. Make sure all of your doctors know every medicine you are taking (including [id number] medicines, vitamins, and supplements). Call your primary care provider before taking any new medicines (including [id number]-[id number] medicines, vitamins, and supplements), because some of these may interact with your current medications, or may make your symptoms worse. Tell your primary care provider if you cannot afford your medications. CONTACT YOUR PRIMARY CARE PROVIDER if you experience any of the following: Difficulty following your treatment plan, or difficulty taking medications CALL 911 OR GO TO THE EMERGENCY DEPARTMENT if you experience any of the following: Sudden, severe abdominal pain or nausea/vomiting Severe chest pain, or chest pain that radiates (moves) to your jaw or arm Sudden, severe shortness of breath or difficulty breathing Thank you for allowing us to participate in your care. Pending Studies at Discharge: No Stand-Alone Forms: My [facility] [place], Work/School Release, Smoking Cessation Medications and DC Order Prescriptions: New prednisone 10 mg tablet 10 mg PO DIRECTED Qty: 30 0RF Rx Instructions: see taper instructions Continued methocarbamol 750 mg tablet 750 mg PO TID PRN (Reason: muscle pain) Qty: 90 0RF albuterol sulfate 90 mcg/actuation HFA aerosol inhaler 2 inh inhalation QID PRN (Reason: shortness of breath or wheezing) Qty: 8.5 0RF etonogestrel-ethinyl estradiol [NuvaRing] 0.12-0.015 mg/24 hr ring 1 vag ring vaginal UD budesonide 0.5 mg/2 mL suspension for nebulization 0.5 mg irrigation DAILY Qty: 60 3RF atomoxetine 25 mg capsule 50 mg PO BID Qty: 60 2RF valacyclovir [Valtrex] 1 gram tablet 2,000 mg PO DAILY PRN (Reason: Cold Sores) Qty: 20 0RF triamcinolone acetonide 0.1 % ointment 1 applic topical BID Qty: 30 0RF Rx Instructions: for 2 weeks then as needed coenzyme Q10 150 mg Capsule 150 mg PO DAILY azelastine 137 mcg (0.1 %) spray,non-aerosol 1 spray intranasal HS Hold Instructions: Resume on 03/24/25. propranolol 10 mg Tablet 10 mg PO UD PRN (Reason: tachycardia from atomoxetine) budesonide-formoterol [Symbicort] 160-4.5 mcg/actuation HFA aerosol inhaler 2 puff inhalation UD PRN (Reason: SOB) Rx Instructions: INHALE 2 PUFFS TWICE DAILY AND THEN EVERY 4-6 HOURS NEEDED PER SMART THERAPY GUIDELINES, MAX 12 PUFFS IN 24 HOURS. Discontinued levofloxacin 500 mg tablet 500 mg PO Q24H 7 Days Qty: 7 0RF Discharge Orders: Discharge Order (Routine); Ordered 04/17/25 Ordered By: Nii Medina/Other Patient Handouts: Self-Care for Headaches Admission Data Admit Date/Time: 04/16/25 13:29 Attending Provider: Jamie Cardona Admit Provider: Nii Escamilla Primary Care Provider: Valentine Fuller Other Providers: Rajinder Sheriff Other Interventions: Discharge Summary Assessment (RN) Last Done: 04/17/25 18:05 Supervising Physician Co-Signing Physician Notes I personally examined the patient and verified all lopez points of history and exam, discussed case, and agree with decision making with Dr Escamilla Feeling okay outside of left-sided neck and shoulder pain. Would like to go home. Vitals noted, in general she is awake and alert pleasant no distress. HEENT normocephalic atraumatic mucous membranes moist. Breathing unlabored no accessory muscle use good effort. Skin without rashes pallor or icterus. Neuro without focal deficits. Physical exam shows a mild upper thoracic kyphosis with a little bit of left-sided paraspinal tenderness and rather significant left-sided tenderness in the musculature in the region of levator Scap. Fever/sinusitisappears viral at this point. Safe/stable for home. Feels much better on steroids, taper. Recent bacterial sinusitis as well as Neisseria meningitidis positive culturehas been treated with cefdinir, Levaquin. Also got a dose of ceftriaxone here, although it does not appear that further antibiotics are necessary. Symptoms seemed inconsistent with meningitis, but given the risk with neisseria LP was performed out of cautionfortunately reassuring. Left neck/shoulder/upper back painappears most consistent with muscular issues centering on levator Scap. Discussed this, as well as the paraspinal hypertonicitydiscussed strengthening exercises as well as Voltaren gel, if this does not improve over the next month or so, then consider evaluating more from a spine spine perspective with imaging and/or a rheumatologic workup (seems unlikely to be necessary) safe/stable for home. Resident Activity Tracking Resident Involvement: Resident Care Provided Care Provided: Adult Hospital Medicine
--- NOTE | 2025-04-17 18:48 | Billing Data ---
Date of Service April 17, 2025 Coding Level of Care Code 42234 IN/OBS DISCH 30 MIN/LESS
== END 2025-04-17 19:00 | disposition home or self-care (01) ==
LOC: ED 08:23 → 3W 08:23 → SUATTDRO 13:29 → 3W 15:24